=== PATIENT | male | born 1955 | race Caucasian/White ===

== ENCOUNTER 2017-01-15 15:49 | Inpatient (IN) | payer MEDICAID, OTHER ==
[2017-01-15 16:34] LABS: ABG ALLEN TEST YES; ARTERIAL BLOOD GAS HCO3 9.3 mmol/L (21-28); ARTERIAL BLOOD GAS O2 SAT 100.5 % (95-98); ARTERIAL BLOOD GAS PCO2 73 mm/Hg (35-45); ARTERIAL BLOOD GAS PH 6.89 (7.35-7.45); ARTERIAL BLOOD GAS PO2 134 mm/Hg (80-100); ARTERIAL BLOOD GAS TCO2 16.2 mmol/L (22-28)
[2017-01-15 16:43] LABS: BASO # 0.1 K/uL (0.0-0.2); BASO % 1.2 % (0.0-2.0); EOS # 0.1 K/uL (0.0-0.7); EOS % 1.5 % (0.0-4.0); LYMPH # 5.9 K/uL (1.0-4.3); LYMPH % 63.2 % (20.0-40.0); MEAN CELL VOLUME 95.9 fl (80.0-94.0); MEAN CORPUSCULAR HEMOGLOBIN 30.5 pg (27.0-31.0); MEAN CORPUSCULAR HGB CONC 31.8 g/dL (33.0-37.0); MEAN PLATELET VOLUME 9.7 fl (7.2-11.7); MONO # 0.3 K/uL (0.0-0.8); MONO % 3.6 % (0.0-10.0); NEUT # 2.9 K/uL (1.8-7.0); NEUT % 30.5 % (50.0-75.0); PLATELET COUNT 185 K/uL (130-400); RBC 4.59 Mil/uL (4.40-5.90); RED CELL DISTRIBUTION WIDTH 13.9 % (11.5-14.5); WHITE BLOOD COUNT 9.4 K/uL (4.8-10.8)
[2017-01-15] MEDS ORDERED: Dextrose 50% SYRINGE Inj (50 ml) IVP ONE (16:54)
[2017-01-15 16:55] LABS: ALB/GLOB RATIO 1.7 (1.0-2.1); ALBUMIN 3.9 g/dL (3.5-5.0); ALT/SGPT 210 U/L (21-72); AST/SGOT 130 U/L (17-59); BLOOD UREA NITROGEN 16 mg/dl (9-20); GFR AFRICAN-AMERICAN 46; GFR NON-AFRICAN AMERICAN 38; MAGNESIUM 2.6 MG/DL (1.6-2.3)
[2017-01-15 17:02] LABS: PARTIAL THROMBOPLASTIN TIME 35.3 Seconds (25.6-37.1); PROTHROMBIN TIME 11.4 Seconds (9.8-13.1)
--- NOTE | 2017-01-15 17:53 | RAD ---
HISTORY: arrest COMPARISON: No prior. FINDINGS: LUNGS: ETT tip lies approximately 2.8 cm above trinity. Central pulmonary vasculature is slightly increased. No acute infiltrates. PLEURA: No significant pleural effusion identified, no pneumothorax apparent. CARDIOVASCULAR: Cardiomegaly. OSSEOUS STRUCTURES: No significant abnormalities. VISUALIZED UPPER ABDOMEN: Normal. OTHER FINDINGS: None. IMPRESSION: In situ ETT as above. No acute infiltrates seen. Central pulmonary vasculature is slightly increased Cardiomegaly.
--- NOTE | 2017-01-15 18:00 | CT ---
PROCEDURE: CT HEAD WITHOUT CONTRAST. HISTORY: cardiac arrest COMPARISON: None available. TECHNIQUE: Axial computed tomography images were obtained through the head/brain without intravenous contrast. Radiation dose: Total exam DLP = 2566.01 mGy-cm. This CT exam was performed using one or more of the following dose reduction techniques: Automated exposure control, adjustment of the mA and/or kV according to patient size, and/or use of iterative reconstruction technique. FINDINGS: HEMORRHAGE: No acute intracranial hemorrhage. . BRAIN: There is diffuse somewhat low-attenuation homogeneous appearance of the brain parenchyma with loss of corticomedullary distinction. Findings are consistent with diffuse cerebral edema likely related to hypoxic event. Clinical correlation recommended. In addition, there are mild chronic periventricular white matter ischemic changes extending peripherally into the deep white matter both cerebral hemispheres. The sulci are also compressed due to the aforementioned cerebral edema. VENTRICLES: No evidence of obstructive hydrocephalus CALVARIUM: No acute calvarial fractures. 14.8 x 13.4 mm soft tissue mass density within the left superior frontal scalp associate with a few calcifications. This could represent a inspissated sebaceous cyst with dystrophic type calcifications or possibly benign mesenchymal tumor. . There is a 2nd right superior frontal scalp mass measuring 16.5 x 13.0 mm with similar differential diagnosis. PARANASAL SINUSES: Unremarkable as visualized. No significant inflammatory changes. MASTOID AIR CELLS: Unremarkable as visualized. No inflammatory changes. OTHER FINDINGS: None. IMPRESSION: Findings are consistent with diffuse cerebral edema likely due to significant hypoxic event. Mild mild chronic periventricular white matter ischemic changes. No evidence of acute intracranial hemorrhage. Findings discussed with Dr. Gupta at approximately 5:55 p.m. with written down and read back verification.
[2017-01-15 18:05] LABS: BANDS 3 % (0-2); NEUTROPHIL 19 % (42-75); TOTAL CELLS COUNTED 100
[2017-01-15 18:06] LABS: EOSINOPHIL 1 % (0-7); LYMPHOCYTE 67 % (20-50); MONOCYTE 4 % (0-10); REACTIVE LYMPHOCYTES 6 % (0-0)
[2017-01-15 18:07] LABS: PLATELET ESTIMATE NORMAL (NORMAL)
--- NOTE | 2017-01-15 18:16 | CP.PCM.CON ---
History of Present Illness - History of Present Illness History of Present Illness: 61 y/o H male a smoker h/o HTN presented with Cardiac arrest AED was applied and the patient was defibrillated twice, multiple further defibrillation awad performed by EMD and ER team. The patient received IV Amio bolus in the filed EKG in ER revealed mononorphic VT followed by A Fib with lateral ischemia. I discussed he case with Dr. Carmona the Code heart paper conservatorroute salesperson , however , he did not consider the case as code heart candidate for [facility] because of lack of ST elevation Head CT scan in ER revealed cerebral edema, The patient is unresponsive on Vent with rhythm alternating between sinus and A Fib Patient is on Dopamine at 20 ug /min The case was discussed at length with ER doctor and intensivit as well as patient's Past Patient History - Past Social History Smoking Status: Never Smoked - PSYCHIATRIC Hx Substance Use: No Meds Allergies/Adverse Reactions: Allergies Allergy/AdvReac Type Severity Reaction Status Date / Time No Known Allergies Allergy Verified 04/28/14 10:46 Physical Exam - Constitutional Additional comments: unresponsive - Eye Exam Eye Exam: Normal appearance - Neck Exam Neck exam: Positive for: Normal Inspection - Respiratory Exam Respiratory Exam: Rhonchi, Wheezes - Cardiovascular Exam Cardiovascular Exam: Irregular Rhythm - GI/Abdominal Exam GI & Abdominal Exam: Hypoactive Bowel Sounds - Extremities Exam Extremities exam: Positive for: normal inspection Results - Vital Signs Recent Vital Signs: Last Vital Signs Temp 98.5 F 01/15/17 16:59 Pulse 80 01/15/17 16:59 Resp 16 01/15/17 16:59 BP 115/80 01/15/17 16:59 Pulse Ox 96 01/15/17 16:59 - Labs Result Diagrams: 01/15/17 16:35 01/15/17 16:35 Assessment & Plan - Assessment and Plan (Free Text) Assessment: s/p Cardiac arrest, Monomorphic VT Paroxysmal A Fib Cerebral Edema Hypotension Plan: Discussed with power wood sawyer Cont. Dopamin infusion strat IV Amio. Hypothermia Neuro consult EP consult Cath once neuro and hemodynamic improvement that allow for transfer
--- NOTE | 2017-01-15 18:29 | ED PDOC ---
HPI: Cardiac Arrest Time Seen by Provider: 01/15/17 16:41 Chief Complaint (Nursing): Cardiac Arrest Chief Complaint (Provider): Cardiac Arrest History Per: EMS Additional Complaint(s): 61 y/o male presents to the emergency department via EMS after found collapsed on the street unresponsive about 20 minutes prior to arrival. As per history from EMT, patient showed to be A-fib by AED and had 3 shocks preformed on him before paramedics arrived. Medicated with 50 mEQ sodium bicarb, 1gm calcium gluconate, 4 doses of epi, 300mg amiodarone. Patient was also intubated with CPR compressions with an intraosseous on the left lower extremity but still had a pulseless rhythm when brought to the emergency department after given all medications mentioned above. --Spoke to who states patient takes Aspirin and Losartan for hypertension. Patient told he was going to meet someone and left which is all she is aware of. Past Medical History Reviewed: Historical Data, Nursing Documentation, Vital Signs Vital Signs: Last Vital Signs Temp 98.5 F 01/15/17 16:59 Pulse 80 01/15/17 16:59 Resp 16 01/15/17 16:59 BP 115/80 01/15/17 16:59 Pulse Ox 96 01/15/17 18:46 - Medical History PMH: HTN - Surgical History Surgical History: No Surg Hx - Family History Family History: States: Unknown Family Hx - Immunization History Hx Tetanus Toxoid Vaccination: No Hx Influenza Vaccination: No Hx Pneumococcal Vaccination: No - Home Medications Home Medications: Ambulatory Orders Medication Instructions Recorded No Known Home Med [No Known Home 04/28/14 Med] - Allergies Allergies/Adverse Reactions: Allergies Allergy/AdvReac Type Severity Reaction Status Date / Time No Known Allergies Allergy Verified 04/28/14 10:46 Review of Systems Review Of Systems: ROS cannot be obtained secondary to pt's inabilty to answer questions. Physical Exam - Reviewed Nursing Documentation Reviewed: Yes Vital Signs Reviewed: Yes - Physical Exam Head Exam: Positive for: ATRAUMATIC, NORMAL INSPECTION, NORMOCEPHALIC - Laboratory Results Result Diagrams: 01/15/17 16:35 01/15/17 16:35 - ECG O2 Sat by Pulse Oximetry: 96 (RA) Pulse Ox Interpretation: Normal Medical Decision Making Medical Decision Making: Time: 15:47 Initial impression: Cardiac Arrest Initial plan: --Patient arrived after 20 minutes down time when found on the floor. --1st EPI given and CPR in process with Bag via ET Tube. Time: 15:50 --Pulse Check: Faint rhythm with Bag via ET Tube still in place. --Central Line completed. Time: 15:52 --2nd EPI given and CPR still in process. Time: 15:55 --3rd EPI given and CPR still in process. Time: 15:56 --Patient shown to be in A-fib, stand clear, and 1st SHOCK given. --CPR continued. Time: 15:57 --Pulse check: Yes --AccuCheck: 53 --Continued compressions and CPR. Time: 15:58 --Pulse Check: None --Stand Clear. 2nd SHOCK. --Continued CPR. Time: 16:02 --Pupils dilated bilaterally. --Pulse Check: Yes --Blood Pressure: 129/72 Time: 16:05 --Pulse Check: yes --EKG preformed which showed A-fib. Time: 16:07 --Pulse Check: None --4th EPI given with CPR in process. Time: 16:09 --Pulse Check: Yes (very faint, 1 beat at a time) Time: 16:11 --Stand Clear. 3rd SHOCK. --Continued CPR. Time: 16:12 --Dopamine HCL prepared and ready for distribution once heart beat is steady. Time: 16:13 --Pulse Check: Yes Time: 16:14 --Pulse Check: None Time: 16:16 --5th EPI given. --Continued CPR process. Time: 16:17 --Stand Clear. 4th SHOCK given. --Continued CPR. Time: 16:19 --Pulse Check: None Time: 16:20 --Stand Clear. 5th SHOCK given. Time: 16:22 --Pulse Check: yes but irregular. --Dopamine Drip started. Time: 16:26 --PAEsha sarmad blood from patient. --Bedside US completed that showed spontaneous activity. Time: 16:28 --EKG showed a heart rate of 14 bpm. --Tidal Volume of 550. --Oxygen of 100% Time: 16:30 --X-ray completed which showed cardiomegaly. Time: 16:33 --pH was a 6.89. Time: 16:34 --Pulse Check: Yes. Time: 16:36 --Page Cather completed. --1 hour critical care. --Type and Screen STAT --Head w/o contrast CT --Electrocardiogram STAT --Alcohol Serum --COMP metabolic panel --Drug Screen, Urine --Lact Acid, plasma --Magnesium --Phosphorous --Troponin I STAT --ED Urine Dipstick (POC) --EKG-ED (EDNURTX) --Partial Thromboplastin Time (COAG) --Prothrombin Time (COAG) --Chest Portable (RAD) --Spindle Maker CONT --IV Insertion --Pain Assess/Re-Assess --Active patient cooling --Implement rewarming measures --Initiate per institute policy --Maintain MAP Range 80-100 --Monitor for Seizure & Shiverin --Nasogastric Tube Insertion --Neuromuscular Blockade Monitor --Seizure Precautions --Page (Urinary Catheter Insertion) --Ventilator Settings (RT) --Dextrose 50% 50 ml IVP Time: 17:52 --Chest X-ray FINDINGS: LUNGS: ETT tip lies approximately 2.8 cm above trinity. Central pulmonary vasculature is slightly increased. No acute infiltrates. PLEURA: No significant pleural effusion identified, no pneumothorax apparent. CARDIOVASCULAR: Cardiomegaly. OSSEOUS STRUCTURES: No significant abnormalities. VISUALIZED UPPER ABDOMEN: Normal. OTHER FINDINGS: None. IMPRESSION: In situ ETT as above. No acute infiltrates seen. Central pulmonary vasculature is slightly increased Cardiomegaly. Time: 17:58 --Head CT FINDINGS: HEMORRHAGE: No acute intracranial hemorrhage. . BRAIN: There is diffuse somewhat low-attenuation homogeneous appearance of the brain parenchyma with loss of corticomedullary distinction. Findings are consistent with diffuse cerebral edema likely related to hypoxic event. Clinical correlation recommended. In addition, there are mild chronic periventricular white matter ischemic changes extending peripherally into the deep white matter both cerebral hemispheres. The sulci are also compressed due to the aforementioned cerebral edema. VENTRICLES: No evidence of obstructive hydrocephalus CALVARIUM: No acute calvarial fractures. 14.8 x 13.4 mm soft tissue mass density within the left superior frontal scalp associate with a few calcifications. This could represent a inspissated sebaceous cyst with dystrophic type calcifications or possibly benign mesenchymal tumor. . There is a 2nd right superior frontal scalp mass measuring 16.5 x 13.0 mm with similar differential diagnosis. PARANASAL SINUSES: Unremarkable as visualized. No significant inflammatory changes. MASTOID AIR CELLS: Unremarkable as visualized. No inflammatory changes. OTHER FINDINGS: None. IMPRESSION: Findings are consistent with diffuse cerebral edema likely due to significant hypoxic event. Mild mild chronic periventricular white matter ischemic changes. No evidence of acute intracranial hemorrhage. Findings discussed with Dr. Gupta at approximately 5:55 p.m. with written down and read back verification. --Patient is now intubated and unresponsive. --Perfusable heart rate supported by medications. --Pupils dilated and being admitted to ICU. Time: 17:50 --Physician Consult: for post cardiac arrest and spoke to Dr. Nestor Carrillo MD. --Admit to hospital routine as inpatient at intensive care unit for post cardiac arrest under the care of Dr. Dahiana Jeffers MD. Time: 17:54 --Critical Care consult: for cardiac arrest and spoke to Dr. Jim Evans MD Scribe Attestation: Documented by Courtney Chirinos, acting as a scribe for Rubia Gupta MD. Provider Scribe Attestation: All medical record entries made by the Scribe were at my direction and personally dictated by me. I have reviewed the chart and agree that the record accurately reflects my personal performance of the history, physical exam, medical decision making, and the department course for this patient. I have also personally directed, reviewed, and agree with the discharge instructions and disposition. around 5:10pm - case d/w with Dr. Jacobs regarding patient s/p cardiac arrest with ROSC and potential for code heart protocol activation. EKGs with significant abnormalities and one after ROSC sent via SMS. Per Dr. Jacobs, patient not candidate for code heart. Case d/w Dr. Evans for ICU admission and Dr. Rutledge for cardiology. Both examined patient and reviewed available data. Patient admitted to the ICU under hospitalist service. Procedures - Central Line Central Line Lumen: triple Central Line Procedure: betadine prep, sterile drapes applied, sterile dressing applied Central Line Postion: femoral (R) Complications: none Central Line Post Position: good blood return Disposition - Clinical Impression Clinical Impression: Cardiac arrest, Signs of return of spontaneous circulation - Patient ED Disposition Is Patient to be Admitted: Yes - Disposition Disposition: Routine/Home Disposition Time: 19:02 Condition: CRITICAL - Pt Status Changed To: Hospital Disposition Of: Inpatient - Admit Certification Admit to Inpatient:: After my assessment, the patient will require hospitalization for at least two midnights. This is because of the severity of symptoms shown, intensity of services needed, and/or the medical risk in this patient being treated as an outpatient. Critical Care Time - Critical Care Note Total Time (in mins): 60 Documented critical care: time excludes all time spent performing seperately billable procedures.
[2017-01-15] MEDS ORDERED: Amiodarone 900 MG in Dextrose 5% In Water 500 ML IVPB SCH (18:30)
--- NOTE | 2017-01-15 18:36 | CP.PCM.CON ---
History of Present Illness - History of Present Illness History of Present Illness: 61 male with history of HTN presented to ER after cardiac arrest, patient was defibrillated in the field twice and multiple times in ER code heart was called by ER but patient is not candidate for cath now as per code heart measurement advisor, patient intubated, no response to verbal stimuli, patient was seen by cardiology consult in ER, events reviewed Review of Systems - Review of Systems Systems not reviewed;Unavailable: Intubated Past Patient History - Past Social History Smoking Status: Former Smoker - CARDIAC Hx Hypertension: Yes - PSYCHIATRIC Hx Substance Use: No Meds Allergies/Adverse Reactions: Allergies Allergy/AdvReac Type Severity Reaction Status Date / Time No Known Allergies Allergy Verified 04/28/14 10:46 - Medications Medications: Current Medications Aspirin (Aspirin Chewable) 81 mg PO DAILY VIKY Atorvastatin Calcium (Lipitor) 40 mg PO DAILY VIKY Metoprolol Tartrate (Lopressor) 6.25 mg PO Q12 VIKY Physical Exam - Head Exam Head Exam: ATRAUMATIC, NORMAL INSPECTION - Eye Exam Eye Exam: Normal appearance - ENT Exam ENT Exam: Mucous Membranes Moist - Neck Exam Neck exam: Positive for: Normal Inspection - Respiratory Exam Respiratory Exam: Clear to Auscultation Bilateral - Cardiovascular Exam Cardiovascular Exam: Irregular Rhythm - GI/Abdominal Exam GI & Abdominal Exam: Normal Bowel Sounds - Extremities Exam Extremities exam: Positive for: normal inspection - Back Exam Back exam: NORMAL INSPECTION - Neurological Exam Additional comments: on ventilator, no response to verbal stimuli - Skin Skin Exam: Warm Results - Vital Signs Recent Vital Signs: Last Vital Signs Temp 98.5 F 01/15/17 16:59 Pulse 80 01/15/17 16:59 Resp 16 01/15/17 16:59 BP 115/80 01/15/17 16:59 Pulse Ox 96 01/15/17 18:31 - Labs Result Diagrams: 01/15/17 16:35 01/15/17 16:35 Assessment & Plan - Assessment and Plan (Free Text) Assessment: A/P Cardiac arrest, v. tach, paroxysmal A Fib, ?acute CA, respiratory failure, h/o HTN, ?anoxic encephalopathy - Ventilatory support - Cardiology consult - Aspirin B-Aubrey, heparin, amioderone - Hypothermia protocol - Follow up labs - Pressors as needed - EP consult - Neurology consult Critical care 40 min
[2017-01-15 18:37] LABS: BARBITURATES, UR NEGATIVE (NEGATIVE); BENZODIAZEPINES, UR NEGATIVE (NEGATIVE); PHENCYCLIDINE, UR NEGATIVE (NEGATIVE)
[2017-01-15] MEDS ORDERED: Heparin25000 units/250ml 1/2NS 25,000 UNITS/250 ML BAG IV ONE (18:43)
[2017-01-15] MEDS ORDERED: Heparin 25,000units in D5W 25,000 UNITS/250 ML BAG IV SCH (18:45)
[2017-01-15 18:48] LABS: OPIATES, UR NEGATIVE (NEGATIVE)
--- NOTE | 2017-01-15 18:56 | CP.PCM.HP ---
History of Present Illness - History of Present Illness History of Present Illness: CC: CARDIAC ARREST HPI: 61 year old male with no known past medical history was brought in by EMS after being found collapsed on sidewalk. Patient was unresponsive for approximately 20 minutes, was found to be in AFIB and was shocked 4 times. He was also given 4 Epi, 1 sodium bicarb, 1 ca gluconate, and Amiodarone bolus 300 mg. He was intubated in the field, and had IO placed for access. In the ER pt was found to be PEA, and alternated between PEA and VFIB while ACLS protocol was followed. Central line placed, code heart contacted, no activation. CT head edema consistent wtih hypoxia. Dopamine drip started and then discontinued prior to transfer to ICU. [employer] Handler and Cardiology consulted and saw patient in ER. Will start amiodarone drip, heparin drip, lopressor, statin, asa, plavix started. OGT and Page inserted. Patient is still unresponsive and does not require sedation for intubation. Afebrile, hypertensive, tachycardic. Respiratory Acidosis, lactate 10.6, elevated Cr 1.8 BUN 16 GFR 46, elevated transaminases 2/2 shock liver. troponin negative 0.07. UDS and ETOH levels negative. ROS: unable to obtain 2/2 unresponsive PMH: unable to obtain 2/2 unresponsive PSH: unable to obtain 2/2 unresponsive FH: unable to obtain 2/2 unresponsive SH: unable to obtain 2/2 unresponsive Meds: unable to obtain 2/2 unresponsive Allergies: NKDA Vitals: reviewed and currently stable Temp Pulse Resp BP Pulse Ox 98.5 F 104 H 14 180/90 H 97 01/15/17 16:59 01/15/17 19:04 01/15/17 19:04 01/15/17 19:04 01/15/17 19:04 Exam: GEN: unresponsive intubated HEENT: NCAT, dilated pupils NECK: supple, no JVD, no lymphadenopathy CARDIAC: +[id number] IRREG rhythm LUNG: CTAB No WRR ABD: SOFT ND BSX4 NO MASSES NO HSM EXT: +pedal pulses, warm NEURO: unresponsive, DTRs SKIN warm, dry PSYCH unable to evaluate Labs: 01/15/17 01/15/17 01/15/17 18:04 17:06 16:56 WBC RBC Hgb Hct MCV MCH MCHC RDW Plt Count MPV Neut % (Auto) Lymph % (Auto) [place] % (Auto) Eos % (Auto) Baso % (Auto) Neut # Lymph # [place] # Eos # Baso # Neutrophils % (Manual) Band Neutrophils % Lymphocytes % (Manual) Reactive Lymphs % Monocytes % (Manual) Eosinophils % (Manual) Platelet Estimate RBC Morphology PT INR APTT pCO2 pO2 HCO3 ABG pH ABG Total CO2 ABG O2 Saturation ABG Base Excess Ru Test ABG Potassium A-a O2 Difference Sodium Chloride Glucose Lactate Vent Mode Mechanical Rate FiO2 Tidal Volume Crit Value Called To Crit Value Called By Crit Value Read Back Blood Gas Notified Time Potassium Carbon Dioxide Anion Gap BUN Creatinine Est GFR ( Amer) Est GFR (Non-Af Amer) Random Glucose Lactic Acid Calcium Phosphorus Magnesium Total Bilirubin AST ALT Alkaline Phosphatase Troponin I Total Protein Albumin Globulin Albumin/Globulin Ratio Arterial Blood Potassium Urine Opiates Screen Negative Urine Methadone Screen Negative Ur Barbiturates Screen Negative Ur Phencyclidine Scrn Negative Ur Amphetamines Screen Negative U Benzodiazepines Scrn Negative U Oth Cocaine Metabols Negative U Cannabinoids Screen Negative Alcohol, Quantitative Blood Type AB POSITIVE Blood Type Confirm AB POSITIVE Antibody Screen Negative BBK History Checked No verified bt 01/15/17 01/15/17 01/15/17 16:35 16:35 16:35 WBC 9.4 RBC 4.59 Hgb 14.0 Hct 44.0 MCV 95.9 H MCH 30.5 MCHC 31.8 L RDW 13.9 Plt Count 185 MPV 9.7 Neut % (Auto) 30.5 L Lymph % (Auto) 63.2 H [place] % (Auto) 3.6 Eos % (Auto) 1.5 Baso % (Auto) 1.2 Neut # 2.9 Lymph # 5.9 H [place] # 0.3 Eos # 0.1 Baso # 0.1 Neutrophils % (Manual) 19 L Band Neutrophils % 3 H Lymphocytes % (Manual) 67 H Reactive Lymphs % 6 H Monocytes % (Manual) 4 Eosinophils % (Manual) 1 Platelet Estimate Normal RBC Morphology Normal PT 11.4 INR 1.0 APTT 35.3 pCO2 pO2 HCO3 ABG pH ABG Total CO2 ABG O2 Saturation ABG Base Excess Ru Test ABG Potassium A-a O2 Difference Sodium Chloride Glucose Lactate Vent Mode Mechanical Rate FiO2 Tidal Volume Crit Value Called To Crit Value Called By Crit Value Read Back Blood Gas Notified Time Potassium Carbon Dioxide Anion Gap BUN Creatinine Est GFR ( Amer) Est GFR (Non-Af Amer) Random Glucose Lactic Acid 11.8 H* Calcium Phosphorus Magnesium Total Bilirubin AST ALT Alkaline Phosphatase Troponin I Total Protein Albumin Globulin Albumin/Globulin Ratio Arterial Blood Potassium Urine Opiates Screen Urine Methadone Screen Ur Barbiturates Screen Ur Phencyclidine Scrn Ur Amphetamines Screen U Benzodiazepines Scrn U Oth Cocaine Metabols U Cannabinoids Screen Alcohol, Quantitative Blood Type Blood Type Confirm Antibody Screen BBK History Checked 01/15/17 01/15/17 16:35 16:29 WBC RBC Hgb Hct MCV MCH MCHC RDW Plt Count MPV Neut % (Auto) Lymph % (Auto) [place] % (Auto) Eos % (Auto) Baso % (Auto) Neut # Lymph # [place] # Eos # Baso # Neutrophils % (Manual) Band Neutrophils % Lymphocytes % (Manual) Reactive Lymphs % Monocytes % (Manual) Eosinophils % (Manual) Platelet Estimate RBC Morphology PT INR APTT pCO2 73 H* pO2 134 H HCO3 9.3 L* ABG pH 6.89 L* ABG Total CO2 16.2 L ABG O2 Saturation 100.5 H ABG Base Excess -20.0 L Ru Test Yes ABG Potassium 3.8 A-a O2 Difference 488.0 Sodium 143 139.0 Chloride 106 106.0 Glucose 391 H Lactate 10.6 H* Vent Mode Prvc ac Mechanical Rate 14 FiO2 100.0 Tidal Volume 550 Crit Value Called To Dr renetta de souza Crit Value Called By 292 Crit Value Read Back Y Blood Gas Notified Time 1634 Potassium 4.0 Carbon Dioxide 15 L Anion Gap 26 H BUN 16 Creatinine 1.8 H Est GFR ( Amer) 46 Est GFR (Non-Af Amer) 38 Random Glucose 312 H Lactic Acid Calcium 9.0 Phosphorus 11.4 H Magnesium 2.6 H Total Bilirubin 0.3 AST 130 H ALT 210 H Alkaline Phosphatase 77 Troponin I 0.0700 Total Protein 6.3 Albumin 3.9 Globulin 2.3 Albumin/Globulin Ratio 1.7 Arterial Blood Potassium 3.8 Urine Opiates Screen Urine Methadone Screen Ur Barbiturates Screen Ur Phencyclidine Scrn Ur Amphetamines Screen U Benzodiazepines Scrn U Oth Cocaine Metabols U Cannabinoids Screen Alcohol, Quantitative < 10 Blood Type Blood Type Confirm Antibody Screen BBK History Checked Rads: ct head consistent with edema 2/2 hypoxia Active Medications: Allergies No Known Allergies Allergy (Verified 04/28/14 10:46) Height & Weight Height 5 ft 7 in Weight 200 lb Start Date/Time Active Medications 01/15/17 18:30 Dextrose 5% In Water 500 ml Amiodarone [Amiodarone 150mg/3 ml vial] 900 mg IVPB 1 mg/min 01/15/17 18:34 Acetaminophen [Tylenol 325mg tab] 650 mg PO Q6H PRN Docusate [Colace] 100 mg PO BID PRN 01/15/17 18:45 Heparin 25,000units in D5W [Heparin 25,000 units/250ml in D5W] 25,000 units in 250 ml IV Per Protocol Anticoagulation Clinical Indication: ACS (STEMI, NSTEMI, UA) Continuation from home meds: No 01/15/17 21:00 Metoprolol Tartrate [Lopressor] 6.25 mg PO Q12 01/16/17 09:00 Aspirin [Aspirin Chewable] 81 mg PO DAILY Atorvastatin [Lipitor] 40 mg PO DAILY Clopidogrel [Plavix] 75 mg PO DAILY Pantoprazole [Protonix Inj] 40 mg IVP DAILY Assessment and Plan: 61 year old male with no known past medical history was brought in by EMS after being found collapsed on sidewalk. Patient was unresponsive for approximately 20 minutes, was found to be in AFIB and was shocked 4 times. He was also given 4 Epi, 1 sodium bicarb, 1 ca gluconate, and Amiodarone bolus 300 mg. He was intubated in the field, and had IO placed for access. In the ER pt was found to be PEA, and alternated between PEA and VFIB while ACLS protocol was followed. Central line placed, code heart contacted, no activation. CT head edema consistent wtih hypoxia. Dopamine drip started and then discontinued prior to transfer to ICU. As[employer] Handler and Cardiology consulted and saw patient in ER. Will start amiodarone drip, heparin drip, lopressor, statin, asa, plavix started. OGT and Page inserted. HYPOXIC HYPERCARBIC RESPIRATORY FAILURE SECONDARY TO CARDIAC ARREST RESPIRATORY ACIDOSIS admit to ICU Patient is still unresponsive and does not require sedation for intubation. Afebrile, hypertensive, tachycardic. Vented AC 550/14/PEEP 5 /100% repeat ABG shock for repeat lactate as well, 11.8 EKG AFIB, evidence of ischemia, troponin 0.07 Patient between AFib and sinus tach Amiodarone Drip Heparin drip, ASA, Plavix, Lopressor ECHO ordered UDS and ETOH levels negative. Cardiology consult Dr. Carrillo Repeat ABG CXR in AM Repeat Chem, Mg Phos Lipid panel TSH and trend cardiac enzymes Repeat EKG in AM ACUTE ON CHRONIC RENAL INSUFFICIENCY? elevated Cr 1.8 BUN 16 GFR 46 monitor repeat BMP ELEVATED TRANSAMINASES elevated transaminases 2/2 shock liver monitor hepatic function Present on Admission - Present on Admission Any Indicators Present on Admission: No Past Patient History - Past Social History Smoking Status: Former Smoker - CARDIAC Hx Hypertension: Yes - PSYCHIATRIC Hx Substance Use: No Meds Allergies/Adverse Reactions: Allergies Allergy/AdvReac Type Severity Reaction Status Date / Time No Known Allergies Allergy Verified 04/28/14 10:46 Results - Vital Signs Recent Vital Signs: Last Vital Signs Temp 98.5 F 01/15/17 16:59 Pulse 80 01/15/17 16:59 Resp 16 01/15/17 16:59 BP 115/80 01/15/17 16:59 Pulse Ox 96 01/15/17 18:55 - Labs Result Diagrams: 01/15/17 16:35 01/15/17 16:35 Labs: Laboratory Results - last 24 hr 01/15/17 18:04 Urine Opiates Screen Negative Urine Methadone Screen Negative Ur Barbiturates Screen Negative Ur Phencyclidine Scrn Negative Ur Amphetamines Screen Negative U Benzodiazepines Scrn Negative U Oth Cocaine Metabols Negative U Cannabinoids Screen Negative
[2017-01-15] MEDS: Sodium Chloride 0.9% 1,000 ML IV SCH ×2 (20:00→21:00)
[2017-01-15 21:06] LABS: ALB/GLOB RATIO 1.5 (1.0-2.1); ALBUMIN 4.3 g/dL (3.5-5.0); CALCIUM 8.1 mg/dL (8.4-10.2); MAGNESIUM 2.4 MG/DL (1.6-2.3)
[2017-01-15 21:19] VITALS: BMI 30.7
[2017-01-15] MEDS: Pantoprazole 40 MG in Sodium Chloride 0.9% 100 ML IVPB SCH (22:00)
[2017-01-15] MEDS ORDERED: Sodium Bicarbonate 8.4% 150 MEQ in Dextrose 5% In Water 1,000 ML IV SCH (23:04)
[2017-01-15 23:10] LABS: HEMOGLOBIN 14.4 g/dL (12.0-18.0); MEAN CORPUSCULAR HEMOGLOBIN 30.6 pg (27.0-31.0); RBC 4.72 Mil/uL (4.40-5.90); RED CELL DISTRIBUTION WIDTH 13.7 % (11.5-14.5); WHITE BLOOD COUNT 13.1 K/uL (4.8-10.8)
[2017-01-15 23:23] LABS: MEAN CELL VOLUME 92.7 fl (80.0-94.0)
[2017-01-15 23:43] LABS: ABG ALLEN TEST YES; ARTERIAL BLOOD GAS HCO3 12.9 mmol/L (21-28); ARTERIAL BLOOD GAS O2 SAT 98.3 % (95-98); ARTERIAL BLOOD GAS PCO2 45 mm/Hg (35-45); ARTERIAL BLOOD GAS PO2 92 mm/Hg (80-100); ARTERIAL BLOOD GAS TCO2 15.4 mmol/L (22-28)
[2017-01-15] MEDS ORDERED: Sodium Bicarbonate 7.5% (0.9 MEQ/ML) 50ML INJ IV ONE (23:50)
[2017-01-16 01:45] LABS: MEAN CELL VOLUME 92.8 fl (80.0-94.0); MEAN CORPUSCULAR HEMOGLOBIN 29.8 pg (27.0-31.0); MEAN CORPUSCULAR HGB CONC 32.2 g/dL (33.0-37.0); RBC 5.03 Mil/uL (4.40-5.90); RED CELL DISTRIBUTION WIDTH 13.8 % (11.5-14.5); WHITE BLOOD COUNT 20.8 K/uL (4.8-10.8)
[2017-01-16 01:56] LABS: ALB/GLOB RATIO 1.4 (1.0-2.1); ALBUMIN 3.8 g/dL (3.5-5.0); CALCIUM 7.9 mg/dL (8.4-10.2); MAGNESIUM 2.4 MG/DL (1.6-2.3)
[2017-01-16 02:12] LABS: INR 1.1 (0.9-1.2); PROTHROMBIN TIME 12.3 Seconds (9.8-13.1)
[2017-01-16 02:15] LABS: PARTIAL THROMBOPLASTIN TIME 107.6 Seconds (25.6-37.1)
[2017-01-16] MEDS: Pantoprazole 40 MG in Sodium Chloride 0.9% 100 ML IVPB SCH ×3 (03:30→18:42)
[2017-01-16 05:08] LABS: ABG ALLEN TEST YES; ARTERIAL BLOOD GAS HCO3 15.2 mmol/L (21-28); ARTERIAL BLOOD GAS HEMOGLOBIN 15.9 g/dL (11.7-17.4); ARTERIAL BLOOD GAS O2 CAPACITY 21.7 mL/dL (16-24); ARTERIAL BLOOD GAS O2 CONTENT 21.4 ML/dL (15-23); ARTERIAL BLOOD GAS O2 SAT 98.4 % (95-98); ARTERIAL BLOOD GAS PCO2 76 mm/Hg (35-45); ARTERIAL BLOOD GAS PH 7.03 (7.35-7.45); ARTERIAL BLOOD GAS PO2 103 mm/Hg (80-100); ARTERIAL BLOOD GAS TCO2 22.4 mmol/L (22-28)
[2017-01-16 05:20] LABS: BASO % 0.1 % (0.0-2.0); EOS % 0.1 % (0.0-4.0); HEMOGLOBIN 14.9 g/dL (12.0-18.0); LYMPH # 0.6 K/uL (1.0-4.3); LYMPH % 3.1 % (20.0-40.0); MEAN CELL VOLUME 92.6 fl (80.0-94.0); MEAN CORPUSCULAR HEMOGLOBIN 30.2 pg (27.0-31.0); MEAN CORPUSCULAR HGB CONC 32.6 g/dL (33.0-37.0); MONO # 0.4 K/uL (0.0-0.8); MONO % 2.1 % (0.0-10.0); NEUT # 18.2 K/uL (1.8-7.0); NEUT % 94.6 % (50.0-75.0); NRBC % 0.3 % (0.0-0.0); PLATELET COUNT 215 K/uL (130-400); RBC 4.94 Mil/uL (4.40-5.90); RED CELL DISTRIBUTION WIDTH 13.7 % (11.5-14.5); WHITE BLOOD COUNT 19.2 K/uL (4.8-10.8)
[2017-01-16 05:31] LABS: ALBUMIN 3.7 g/dL (3.5-5.0)
[2017-01-16 05:34] LABS: ALB/GLOB RATIO 1.3 (1.0-2.1)
[2017-01-16 05:35] LABS: CALCIUM 7.8 mg/dL (8.4-10.2); MAGNESIUM 2.5 MG/DL (1.6-2.3)
[2017-01-16 07:48] LABS: BANDS 1 % (0-2); LYMPHOCYTE 7 % (20-50); MONOCYTE 6 % (0-10); NEUTROPHIL 86 % (42-75); NUCLEATED RED BLOOD CELL 1 % (0-0); PLATELET ESTIMATE NORMAL (NORMAL); TOTAL CELLS COUNTED 100
[2017-01-16 07:54] LABS: LARGE PLATELETS PRESENT
[2017-01-16] MEDS ORDERED: Pneumococcal 23-Valent Vaccine IM ONE (08:25)
--- NOTE | 2017-01-16 08:25 | CARD ---
APPROVED REPORT EKG Measurement Heart [id number] <Conclusion> Atrial fibrillation with slow ventricular response T wave abnormality, consider lateral ischemia Abnormal ECG
[2017-01-16 09:04] LABS: VENOUS BLOOD GAS BASE EXCESS -9.5 mmol/L (0.0-2.0); VENOUS BLOOD GAS PCO2 97 mmHg (40-60); VENOUS BLOOD GAS PO2 29 mm/Hg (30-55)
[2017-01-16 09:08] LABS: ABG ALLEN TEST YES; ARTERIAL BLOOD GAS HCO3 15.7 mmol/L (21-28); ARTERIAL BLOOD GAS O2 CAPACITY 20.8 mL/dL (16-24); ARTERIAL BLOOD GAS O2 CONTENT 20.6 ML/dL (15-23); ARTERIAL BLOOD GAS O2 SAT 99.2 % (95-98); ARTERIAL BLOOD GAS PCO2 49 mm/Hg (35-45); ARTERIAL BLOOD GAS PH 7.15 (7.35-7.45); ARTERIAL BLOOD GAS PO2 149 mm/Hg (80-100); ARTERIAL BLOOD GAS TCO2 18.6 mmol/L (22-28)
--- NOTE | 2017-01-16 10:17 | RAD ---
PROCEDURE: CHEST RADIOGRAPH, 1 VIEW HISTORY: intubaed COMPARISON: 01/15/2017. FINDINGS: The endotracheal tube terminates 5.3 cm proximal to the trinity. The nasogastric tube terminates in the stomach. LUNGS: The lungs are clear. PLEURA: No pneumothorax or pleural fluid seen. CARDIOVASCULAR: Normal. OSSEOUS STRUCTURES: No significant abnormalities. VISUALIZED UPPER ABDOMEN: Normal. OTHER FINDINGS: None. IMPRESSION: No acute findings.
--- NOTE | 2017-01-16 10:23 | PCM.PROC ---
Procedures Attestation:: I certify that I have explained the specified Operation(s) or Procedure(s), risks, benefits and reasonable alternatives to the Patient and/or other person responsible. The opportunity was given to ask questions and all questions answered - Arterial Line Right Femoral Aseptic technique was employed throughout the procedure: Hand Hygiene done prior to procedure, Full sterile barriers (mask, hair cover, sterile gown, sterile gloves), Chloraprep Antiseptic: 2 minute prep for Femoral Time Out Performed: Yes Pt. placed on Pulse Ox Monitor: Yes Central Line Prep: Chlorhexidine-Alcohol Combination Local Anesthesia Used: Lidocaine 1% Amount of Anesthesia Used (mls): 3 Ultrasound Used for Placement: No Technique Used: Guide Wire Technique Secured by: Suture Post procedure dressing: Clear vapor permeable, Chlorhexidine disc (Biopatch) Patient Tolerated Procedure: well Immediate Complications: none
--- NOTE | 2017-01-16 10:27 | CP.CCUPN ---
CCU Subjective - Physician Review Subjective (Free Text): Interim events reviewed: Remains on Therapeutic Hypothermia, with 24H period to end at 800PM today. Not on any sedation, BP shows MAP 64, not on vasopressors, breathing 16 on AC 14, SPO2 98% on 100% fiO2. Arterial Line just placed and Vasopressors started to maintain MAP 80 or better. Urine output appears poor, on alkalinized fluids at 75 ml/hr. Body temp at 93.9F, no shivering noted. Unequal pupillary changes noted: R now is 2 mm and sluggish to no reactivity, L is 3 mm and reactive. Was on heparin drip , but stopped overnight due to dark red bloody fluid aspirates noted in OGT, now total 1200 ml output. 24H I/O is +1.5 L. ROS: unobtainable , comatose patient PMSFH: all nursing and physician notes reviewed, no other pertinent history relevant to current problems. CCU Objective - Vital Signs / Intake & Output Vital Signs (Last 4 hours): Vital Signs Temp Pulse Resp BP Pulse Ox 01/16/17 07:06 93.9 F L 70 22 84/63 L 97 01/16/17 06:30 92.7 F L 70 22 104/43 L 97 Intake and Output (Last 8hrs): Intake & Output 01/15/17 01/16/17 01/16/17 22:59 06:59 14:59 Intake Total 1010 1881 95 Output Total 420 895 60 Balance 590 986 35 Weight 196 lb Intake: IV 1010 1881 95 Output: Gastric Amount 400 800 50 Stomach 400 800 50 Urine 20 95 10 Urethral (Page) 20 95 10 Other: # Bowel Movements 1 1 - Physical Exam Head: Positive for: Normocephalic Pupils: Positive for: Sluggish, Other (R now is 2 mm and sluggish to no reactivity, L is 3 mm and reactive) Extroacular Muscles: Positive for: Other (unable to assess, but + Dolls eyes) Conjunctiva: Positive for: Normal Mouth: Positive for: Moist Mucous Membranes Pharnyx: Positive for: Other (ETT in place at 23 cm chantel at the lips. ) Neck: Negative for: JVD Respiratory/Chest: Positive for: Decreased Breath Sounds. Negative for: Wheezes , Rales, Rhonchi Cardiovascular: Positive for: Irregular Rhythm, Peripheal Pulses Present. Negative for: Murmurs, Rub Abdomen: Positive for: Other (soft, no massess palpable.). Negative for: Distention, Rebound Lower Extremity: Positive for: Edema, NORMAL PULSES. Negative for: CALF TENDERNESS, Cyanosis Neurological: Positive for: GCS=15, Other (GCS= 3T) Skin: Positive for: Warm. Negative for: Rashes - Medications Active Medications: Active Medications Generic Name Dose Route Start Last Admin Trade Name Freq PRN Reason Stop Dose Admin Acetaminophen 650 mg 01/15/17 18:34 Tylenol 325mg Tab PO Q6H PRN Fever >100.4 F Aspirin 81 mg 01/16/17 09:00 01/15/17 18:47 Aspirin Chewable PO 81 mg DAILY VIKY Administration Atorvastatin Calcium 40 mg 01/16/17 09:00 Lipitor PO DAILY VIKY Clopidogrel Bisulfate 75 mg 01/16/17 09:00 Plavix PO DAILY VIKY Docusate Sodium 100 mg 01/15/17 18:34 Colace PO BID PRN Constipation Amiodarone HCl 900 mg/ 518 mls @ 34.53 mls/hr 01/15/17 18:30 01/15/17 20:50 Dextrose IVPB 34.53 mls/hr .[id number] VIKY Administration Protocol 1 MG/MIN Heparin Sodium/Dextrose 25,000 units in 250 mls @ 10 mls/hr 01/15/17 18:45 18:59 Heparin 25,000 Units/250ml In D5w IV 10 mls/hr .Q24H VIKY Administration Protocol Per Protocol Pantoprazole Sodium 40 mg/ 100 mls @ 20 mls/hr 01/15/17 21:45 01/16/17 03:30 Sodium Chloride IVPB 20 mls/hr Q5H VIKY Administration 8 MG/HR Norepinephrine Bitartrate 4 mg 254 mls @ 9.52 mls/hr 01/15/17 22:30 / Dextrose IV .Q24H VIKY Protocol 2.5 MCG/MIN Sodium Bicarbonate 150 meq/ 1,150 mls @ 75 mls/hr 01/15/17 23:04 01/15/17 23: 52 Dextrose IV 01/16/17 14:23 75 mls/hr .[id number] VIKY Administration Metoprolol Tartrate 6.25 mg 01/15/17 21:00 01/15/17 18:47 Lopressor PO 6.25 mg Q12 VIKY Administration Pantoprazole Sodium 40 mg 01/16/17 09:00 01/16/17 09:09 Protonix Inj IVP 40 mg DAILY VIKY Administration - Patient Studies Lab Studies: Lab Studies 01/16/17 01/16/17 01/16/17 Range/Units 09:02 08:54 05:00 WBC (4.8-10.8) K/uL RBC (4.40-5.90) Mil/uL Hgb (12.0-18.0) g/dL Hct (35.0-51.0) % MCV (80.0-94.0) fl MCH (27.0-31.0) pg MCHC (33.0-37.0) g/dL RDW (11.5-14.5) % Plt Count (130-400) K/uL MPV (7.2-11.7) fl Neut % (Auto) (50.0-75.0) % Lymph % (Auto) (20.0-40.0) % [place] % (Auto) (0.0-10.0) % Eos % (Auto) (0.0-4.0) % Baso % (Auto) (0.0-2.0) % Neut # (1.8-7.0) K/uL Lymph # (1.0-4.3) K/uL [place] # (0.0-0.8) K/uL Eos # (0.0-0.7) K/uL Baso # (0.0-0.2) K/uL Neutrophils % (Manual) (42-75) % Band Neutrophils % (0-2) % Lymphocytes % (Manual) (20-50) % Monocytes % (Manual) (0-10) % Nucleated RBC % (0-0) % Platelet Estimate (NORMAL) Large Platelets RBC Morphology (NORMAL) PT (9.8-13.1) Seconds INR (0.9-1.2) APTT 66.9 H D (25.6-37.1) Seconds pCO2 49 H (35-45) mm/Hg pO2 149 H 29 L (80-100) mm/Hg HCO3 15.7 L (21-28) mmol/L ABG pH 7.15 L* (7.35-7.45) ABG Total CO2 18.6 L (22-28) mmol/L ABG O2 Saturation 99.2 H (95-98) % ABG O2 Content 20.6 (15-23) ML/dL ABG Base Excess -11.8 L (-2.0-3.0) mmol/L ABG Hemoglobin 15.0 (11.7-17.4) g/dL ABG Carboxyhemoglobin 1.1 (0.5-1.5) % POC ABG HHb (Measured) 0.8 (0.0-5.0) % ABG Methemoglobin 1.6 (0.0-3.0) % ABG O2 Capacity 20.8 (16-24) mL/dL Ru Test Yes ABG Potassium (3.6-5.2) mmol/L VBG pH 7.00 L* (7.32-7.43) VBG pCO2 97 H* (40-60) mmHg VBG HCO3 15.6 mmol/L VBG Total CO2 26.9 (22-28) mmol/L VBG O2 Sat (Calc) 53.9 (40-65) % VBG Base Excess -9.5 L (0.0-2.0) mmol/L VBG Potassium 3.5 L (3.6-5.2) mmol/L A-a O2 Difference 503.0 mm/Hg Hgb O2 Saturation 96.5 (95.0-98.0) % Glucose 212 H (75-110) mg/dL Lactate 3.7 H (0.7-2.1) mmol/L Vent Mode A/c Mechanical Rate 14 FiO2 100.0 100.0 % Tidal Volume 500 Crit Value Called To Brendon santos Crit Value Called By 23 Ms Crit Value Read Back Y Y Blood Gas Notified Time 907 903 Sodium 140.0 (132-148) mmol/l Potassium (3.6-5.0) MMOL/L Chloride 109.0 H (98-107) mmol/L Carbon Dioxide (22-30) mmol/L Anion Gap (10-20) BUN (9-20) mg/dl Creatinine (0.8-1.5) mg/dL Est GFR ( Amer) Est GFR (Non-Af Amer) POC Glucose (mg/dL) (65-110) mg/dL Random Glucose (75-110) mg/dL Lactic Acid (0.7-2.1) MMOL/L Calcium (8.4-10.2) mg/dL Phosphorus (2.5-4.5) mg/dl Magnesium (1.6-2.3) MG/DL Total Bilirubin (0.2-1.3) mg/dl AST (17-59) U/L ALT (21-72) U/L Alkaline Phosphatase (38-126) U/L Troponin I (0.00-0.120) ng/mL Total Protein (6.3-8.2) G/DL Albumin (3.5-5.0) g/dL Globulin (2.2-3.9) gm/dL Albumin/Globulin Ratio (1.0-2.1) Triglycerides (0-149) mg/DL Cholesterol (0-199) mg/dL LDL Cholesterol Direct (0-129) mg/dL HDL Cholesterol (30-70) MG/DL TSH 3rd Generation (0.46-4.68) mIU/ML Arterial Blood Potassium (3.6-5.2) mmol/L Venous Blood Potassium 3.5 L (3.6-5.2) mmol/L Urine Opiates Screen (NEGATIVE) Urine Methadone Screen (NEGATIVE) Ur Barbiturates Screen (NEGATIVE) Ur Phencyclidine Scrn (NEGATIVE) Ur Amphetamines Screen (NEGATIVE) U Benzodiazepines Scrn (NEGATIVE) U Oth Cocaine Metabols (NEGATIVE) U Cannabinoids Screen (NEGATIVE) 01/16/17 01/16/17 01/16/17 Range/Units 05:00 04:50 04:35 WBC (4.8-10.8) K/uL RBC (4.40-5.90) Mil/uL Hgb (12.0-18.0) g/dL Hct (35.0-51.0) % MCV (80.0-94.0) fl MCH (27.0-31.0) pg MCHC (33.0-37.0) g/dL RDW (11.5-14.5) % Plt Count (130-400) K/uL MPV (7.2-11.7) fl Neut % (Auto) (50.0-75.0) % Lymph % (Auto) (20.0-40.0) % [place] % (Auto) (0.0-10.0) % Eos % (Auto) (0.0-4.0) % Baso % (Auto) (0.0-2.0) % Neut # (1.8-7.0) K/uL Lymph # (1.0-4.3) K/uL [place] # (0.0-0.8) K/uL Eos # (0.0-0.7) K/uL Baso # (0.0-0.2) K/uL Neutrophils % (Manual) (42-75) % Band Neutrophils % (0-2) % Lymphocytes % (Manual) (20-50) % Monocytes % (Manual) (0-10) % Nucleated RBC % (0-0) % Platelet Estimate (NORMAL) Large Platelets RBC Morphology (NORMAL) PT (9.8-13.1) Seconds INR (0.9-1.2) APTT (25.6-37.1) Seconds pCO2 76 H* (35-45) mm/Hg pO2 103 H (80-100) mm/Hg HCO3 15.2 L (21-28) mmol/L ABG pH 7.03 L* (7.35-7.45) ABG Total CO2 22.4 (22-28) mmol/L ABG O2 Saturation 98.4 H (95-98) % ABG O2 Content 21.4 (15-23) ML/dL ABG Base Excess -12.4 L (-2.0-3.0) mmol/L ABG Hemoglobin 15.9 (11.7-17.4) g/dL ABG Carboxyhemoglobin 1.5 (0.5-1.5) % POC ABG HHb (Measured) 1.6 (0.0-5.0) % ABG Methemoglobin 1.6 (0.0-3.0) % ABG O2 Capacity 21.7 (16-24) mL/dL Ru Test Yes ABG Potassium (3.6-5.2) mmol/L VBG pH (7.32-7.43) VBG pCO2 (40-60) mmHg VBG HCO3 mmol/L VBG Total CO2 (22-28) mmol/L VBG O2 Sat (Calc) (40-65) % VBG Base Excess (0.0-2.0) mmol/L VBG Potassium (3.6-5.2) mmol/L A-a O2 Difference 515.0 mm/Hg Hgb O2 Saturation 95.4 (95.0-98.0) % Glucose (75-110) mg/dL Lactate (0.7-2.1) mmol/L Vent Mode A/c Mechanical Rate 14 FiO2 100.0 % Tidal Volume 500 Crit Value Called To Tien marcus rn Crit Value Called By 6075 Crit Value Read Back Y Blood Gas Notified Time 508 Sodium 147 (132-148) mmol/l Potassium 3.6 (3.6-5.0) MMOL/L Chloride 113 H (98-107) mmol/L Carbon Dioxide 22 (22-30) mmol/L Anion Gap 16 (10-20) BUN 30 H (9-20) mg/dl Creatinine 2.6 H (0.8-1.5) mg/dL Est GFR ( Amer) 30 Est GFR (Non-Af Amer) 25 POC Glucose (mg/dL) 152 H (65-110) mg/dL Random Glucose 165 H (75-110) mg/dL Lactic Acid (0.7-2.1) MMOL/L Calcium 7.8 L (8.4-10.2) mg/dL Phosphorus 5.5 H (2.5-4.5) mg/dl Magnesium 2.5 H (1.6-2.3) MG/DL Total Bilirubin 0.5 (0.2-1.3) mg/dl AST 1108 H (17-59) U/L ALT 580 H (21-72) U/L Alkaline Phosphatase 129 H (38-126) U/L Troponin I 109.0000 H* (0.00-0.120) ng/mL Total Protein 6.6 (6.3-8.2) G/DL Albumin 3.7 (3.5-5.0) g/dL Globulin 2.9 (2.2-3.9) gm/dL Albumin/Globulin Ratio 1.3 (1.0-2.1) Triglycerides 139 (0-149) mg/DL Cholesterol 183 (0-199) mg/dL LDL Cholesterol Direct 124 (0-129) mg/dL HDL Cholesterol 31 (30-70) MG/DL TSH 3rd Generation 3.19 (0.46-4.68) mIU/ML Arterial Blood Potassium (3.6-5.2) mmol/L Venous Blood Potassium (3.6-5.2) mmol/L Urine Opiates Screen (NEGATIVE) Urine Methadone Screen (NEGATIVE) Ur Barbiturates Screen (NEGATIVE) Ur Phencyclidine Scrn (NEGATIVE) Ur Amphetamines Screen (NEGATIVE) U Benzodiazepines Scrn (NEGATIVE) U Oth Cocaine Metabols (NEGATIVE) U Cannabinoids Screen (NEGATIVE) 01/16/17 01/16/17 01/16/17 Range/Units 04:35 01:28 01:18 WBC 19.2 H (4.8-10.8) K/uL RBC 4.94 (4.40-5.90) Mil/uL Hgb 14.9 (12.0-18.0) g/dL Hct 45.8 (35.0-51.0) % MCV 92.6 (80.0-94.0) fl MCH 30.2 (27.0-31.0) pg MCHC 32.6 L (33.0-37.0) g/dL RDW 13.7 (11.5-14.5) % Plt Count 215 (130-400) K/uL MPV 9.0 (7.2-11.7) fl Neut % (Auto) 94.6 H (50.0-75.0) % Lymph % (Auto) 3.1 L (20.0-40.0) % [place] % (Auto) 2.1 (0.0-10.0) % Eos % (Auto) 0.1 (0.0-4.0) % Baso % (Auto) 0.1 (0.0-2.0) % Neut # 18.2 H (1.8-7.0) K/uL Lymph # 0.6 L (1.0-4.3) K/uL [place] # 0.4 (0.0-0.8) K/uL Eos # 0.0 (0.0-0.7) K/uL Baso # 0.0 (0.0-0.2) K/uL Neutrophils % (Manual) 86 H (42-75) % Band Neutrophils % 1 (0-2) % Lymphocytes % (Manual) 7 L (20-50) % Monocytes % (Manual) 6 (0-10) % Nucleated RBC % 1 H (0-0) % Platelet Estimate Normal (NORMAL) Large Platelets Present RBC Morphology Normal (NORMAL) PT (9.8-13.1) Seconds INR (0.9-1.2) APTT (25.6-37.1) Seconds pCO2 (35-45) mm/Hg pO2 (80-100) mm/Hg HCO3 (21-28) mmol/L ABG pH (7.35-7.45) ABG Total CO2 (22-28) mmol/L ABG O2 Saturation (95-98) % ABG O2 Content (15-23) ML/dL ABG Base Excess (-2.0-3.0) mmol/L ABG Hemoglobin (11.7-17.4) g/dL ABG Carboxyhemoglobin (0.5-1.5) % POC ABG HHb (Measured) (0.0-5.0) % ABG Methemoglobin (0.0-3.0) % ABG O2 Capacity (16-24) mL/dL Ru Test ABG Potassium (3.6-5.2) mmol/L VBG pH (7.32-7.43) VBG pCO2 (40-60) mmHg VBG HCO3 mmol/L VBG Total CO2 (22-28) mmol/L VBG O2 Sat (Calc) (40-65) % VBG Base Excess (0.0-2.0) mmol/L VBG Potassium (3.6-5.2) mmol/L A-a O2 Difference mm/Hg Hgb O2 Saturation (95.0-98.0) % Glucose (75-110) mg/dL Lactate (0.7-2.1) mmol/L Vent Mode Mechanical Rate FiO2 % Tidal Volume Crit Value Called To Crit Value Called By Crit Value Read Back Blood Gas Notified Time Sodium 149 H (132-148) mmol/l Potassium 3.1 L (3.6-5.0) MMOL/L Chloride 115 H (98-107) mmol/L Carbon Dioxide 20 L (22-30) mmol/L Anion Gap 17 (10-20) BUN 27 H (9-20) mg/dl Creatinine 2.4 H (0.8-1.5) mg/dL Est GFR ( Amer) 33 Est GFR (Non-Af Amer) 27 POC Glucose (mg/dL) 170 H (65-110) mg/dL Random Glucose 174 H (75-110) mg/dL Lactic Acid (0.7-2.1) MMOL/L Calcium 7.9 L (8.4-10.2) mg/dL Phosphorus 4.6 H (2.5-4.5) mg/dl Magnesium 2.4 H (1.6-2.3) MG/DL Total Bilirubin 0.7 (0.2-1.3) mg/dl AST 1033 H (17-59) U/L ALT 593 H (21-72) U/L Alkaline Phosphatase 124 (38-126) U/L Troponin I (0.00-0.120) ng/mL Total Protein 6.6 (6.3-8.2) G/DL Albumin 3.8 (3.5-5.0) g/dL Globulin 2.7 (2.2-3.9) gm/dL Albumin/Globulin Ratio 1.4 (1.0-2.1) Triglycerides (0-149) mg/DL Cholesterol (0-199) mg/dL LDL Cholesterol Direct (0-129) mg/dL HDL Cholesterol (30-70) MG/DL TSH 3rd Generation (0.46-4.68) mIU/ML Arterial Blood Potassium (3.6-5.2) mmol/L Venous Blood Potassium (3.6-5.2) mmol/L Urine Opiates Screen (NEGATIVE) Urine Methadone Screen (NEGATIVE) Ur Barbiturates Screen (NEGATIVE) Ur Phencyclidine Scrn (NEGATIVE) Ur Amphetamines Screen (NEGATIVE) U Benzodiazepines Scrn (NEGATIVE) U Oth Cocaine Metabols (NEGATIVE) U Cannabinoids Screen (NEGATIVE) 01/16/17 01/16/17 01/15/17 Range/Units 01:18 01:18 23:39 WBC 20.8 H D (4.8-10.8) K/uL RBC 5.03 (4.40-5.90) Mil/uL Hgb 15.0 (12.0-18.0) g/dL Hct 46.7 (35.0-51.0) % MCV 92.8 (80.0-94.0) fl MCH 29.8 (27.0-31.0) pg MCHC 32.2 L (33.0-37.0) g/dL RDW 13.8 (11.5-14.5) % Plt Count 220 (130-400) K/uL MPV (7.2-11.7) fl Neut % (Auto) (50.0-75.0) % Lymph % (Auto) (20.0-40.0) % [place] % (Auto) (0.0-10.0) % Eos % (Auto) (0.0-4.0) % Baso % (Auto) (0.0-2.0) % Neut # (1.8-7.0) K/uL Lymph # (1.0-4.3) K/uL [place] # (0.0-0.8) K/uL Eos # (0.0-0.7) K/uL Baso # (0.0-0.2) K/uL Neutrophils % (Manual) (42-75) % Band Neutrophils % (0-2) % Lymphocytes % (Manual) (20-50) % Monocytes % (Manual) (0-10) % Nucleated RBC % (0-0) % Platelet Estimate (NORMAL) Large Platelets RBC Morphology (NORMAL) PT 12.3 (9.8-13.1) Seconds INR 1.1 (0.9-1.2) APTT 107.6 H* D (25.6-37.1) Seconds pCO2 45 (35-45) mm/Hg pO2 92 (80-100) mm/Hg HCO3 12.9 L (21-28) mmol/L ABG pH 7.10 L* (7.35-7.45) ABG Total CO2 15.4 L (22-28) mmol/L ABG O2 Saturation 98.3 H (95-98) % ABG O2 Content (15-23) ML/dL ABG Base Excess -15.3 L (-2.0-3.0) mmol/L ABG Hemoglobin (11.7-17.4) g/dL ABG Carboxyhemoglobin (0.5-1.5) % POC ABG HHb (Measured) (0.0-5.0) % ABG Methemoglobin (0.0-3.0) % ABG O2 Capacity (16-24) mL/dL Ru Test Yes ABG Potassium 3.5 L (3.6-5.2) mmol/L VBG pH (7.32-7.43) VBG pCO2 (40-60) mmHg VBG HCO3 mmol/L VBG Total CO2 (22-28) mmol/L VBG O2 Sat (Calc) (40-65) % VBG Base Excess (0.0-2.0) mmol/L VBG Potassium (3.6-5.2) mmol/L A-a O2 Difference 565.0 mm/Hg Hgb O2 Saturation (95.0-98.0) % Glucose 149 H (75-110) mg/dL Lactate 3.6 H (0.7-2.1) mmol/L Vent Mode A/c Mechanical Rate 14 FiO2 100.0 % Tidal Volume 500 Crit Value Called To Tien marcus rn Crit Value Called By 6075 Crit Value Read Back Y Blood Gas Notified Time 2343 Sodium 144.0 (132-148) mmol/l Potassium (3.6-5.0) MMOL/L Chloride 118.0 H (98-107) mmol/L Carbon Dioxide (22-30) mmol/L Anion Gap (10-20) BUN (9-20) mg/dl Creatinine (0.8-1.5) mg/dL Est GFR ( Amer) Est GFR (Non-Af Amer) POC Glucose (mg/dL) (65-110) mg/dL Random Glucose (75-110) mg/dL Lactic Acid (0.7-2.1) MMOL/L Calcium (8.4-10.2) mg/dL Phosphorus (2.5-4.5) mg/dl Magnesium (1.6-2.3) MG/DL Total Bilirubin (0.2-1.3) mg/dl AST (17-59) U/L ALT (21-72) U/L Alkaline Phosphatase (38-126) U/L Troponin I (0.00-0.120) ng/mL Total Protein (6.3-8.2) G/DL Albumin (3.5-5.0) g/dL Globulin (2.2-3.9) gm/dL Albumin/Globulin Ratio (1.0-2.1) Triglycerides (0-149) mg/DL Cholesterol (0-199) mg/dL LDL Cholesterol Direct (0-129) mg/dL HDL Cholesterol (30-70) MG/DL TSH 3rd Generation (0.46-4.68) mIU/ML Arterial Blood Potassium 3.5 L (3.6-5.2) mmol/L Venous Blood Potassium (3.6-5.2) mmol/L Urine Opiates Screen (NEGATIVE) Urine Methadone Screen (NEGATIVE) Ur Barbiturates Screen (NEGATIVE) Ur Phencyclidine Scrn (NEGATIVE) Ur Amphetamines Screen (NEGATIVE) U Benzodiazepines Scrn (NEGATIVE) U Oth Cocaine Metabols (NEGATIVE) U Cannabinoids Screen (NEGATIVE) 01/15/17 01/15/17 01/15/17 Range/Units 23:32 23:03 20:30 WBC 13.1 H (4.8-10.8) K/uL RBC 4.72 (4.40-5.90) Mil/uL Hgb 14.4 (12.0-18.0) g/dL Hct 43.8 (35.0-51.0) % MCV 92.7 D (80.0-94.0) fl MCH 30.6 (27.0-31.0) pg MCHC 33.0 (33.0-37.0) g/dL RDW 13.7 (11.5-14.5) % Plt Count 235 (130-400) K/uL MPV (7.2-11.7) fl Neut % (Auto) (50.0-75.0) % Lymph % (Auto) (20.0-40.0) % [place] % (Auto) (0.0-10.0) % Eos % (Auto) (0.0-4.0) % Baso % (Auto) (0.0-2.0) % Neut # (1.8-7.0) K/uL Lymph # (1.0-4.3) K/uL [place] # (0.0-0.8) K/uL Eos # (0.0-0.7) K/uL Baso # (0.0-0.2) K/uL Neutrophils % (Manual) (42-75) % Band Neutrophils % (0-2) % Lymphocytes % (Manual) (20-50) % Monocytes % (Manual) (0-10) % Nucleated RBC % (0-0) % Platelet Estimate (NORMAL) Large Platelets RBC Morphology (NORMAL) PT (9.8-13.1) Seconds INR (0.9-1.2) APTT (25.6-37.1) Seconds pCO2 (35-45) mm/Hg pO2 (80-100) mm/Hg HCO3 (21-28) mmol/L ABG pH (7.35-7.45) ABG Total CO2 (22-28) mmol/L ABG O2 Saturation (95-98) % ABG O2 Content (15-23) ML/dL ABG Base Excess (-2.0-3.0) mmol/L ABG Hemoglobin (11.7-17.4) g/dL ABG Carboxyhemoglobin (0.5-1.5) % POC ABG HHb (Measured) (0.0-5.0) % ABG Methemoglobin (0.0-3.0) % ABG O2 Capacity (16-24) mL/dL Ru Test ABG Potassium (3.6-5.2) mmol/L VBG pH (7.32-7.43) VBG pCO2 (40-60) mmHg VBG HCO3 mmol/L VBG Total CO2 (22-28) mmol/L VBG O2 Sat (Calc) (40-65) % VBG Base Excess (0.0-2.0) mmol/L VBG Potassium (3.6-5.2) mmol/L A-a O2 Difference mm/Hg Hgb O2 Saturation (95.0-98.0) % Glucose (75-110) mg/dL Lactate (0.7-2.1) mmol/L Vent Mode Mechanical Rate FiO2 % Tidal Volume Crit Value Called To Crit Value Called By Crit Value Read Back Blood Gas Notified Time Sodium 147 (132-148) mmol/l Potassium 4.6 (3.6-5.0) MMOL/L Chloride 116 H (98-107) mmol/L Carbon Dioxide 17 L (22-30) mmol/L Anion Gap 19 (10-20) BUN 23 H (9-20) mg/dl Creatinine 2.1 H (0.8-1.5) mg/dL Est GFR ( Amer) 39 Est GFR (Non-Af Amer) 32 POC Glucose (mg/dL) 152 H (65-110) mg/dL Random Glucose 160 H (75-110) mg/dL Lactic Acid (0.7-2.1) MMOL/L Calcium 8.1 L (8.4-10.2) mg/dL Phosphorus 8.5 H (2.5-4.5) mg/dl Magnesium 2.4 H (1.6-2.3) MG/DL Total Bilirubin 0.5 (0.2-1.3) mg/dl AST 717 H D (17-59) U/L ALT 627 H D (21-72) U/L Alkaline Phosphatase 170 H D (38-126) U/L Troponin I (0.00-0.120) ng/mL Total Protein 7.2 (6.3-8.2) G/DL Albumin 4.3 (3.5-5.0) g/dL Globulin 2.9 (2.2-3.9) gm/dL Albumin/Globulin Ratio 1.5 (1.0-2.1) Triglycerides (0-149) mg/DL Cholesterol (0-199) mg/dL LDL Cholesterol Direct (0-129) mg/dL HDL Cholesterol (30-70) MG/DL TSH 3rd Generation (0.46-4.68) mIU/ML Arterial Blood Potassium (3.6-5.2) mmol/L Venous Blood Potassium (3.6-5.2) mmol/L Urine Opiates Screen (NEGATIVE) Urine Methadone Screen (NEGATIVE) Ur Barbiturates Screen (NEGATIVE) Ur Phencyclidine Scrn (NEGATIVE) Ur Amphetamines Screen (NEGATIVE) U Benzodiazepines Scrn (NEGATIVE) U Oth Cocaine Metabols (NEGATIVE) U Cannabinoids Screen (NEGATIVE) 01/15/17 01/15/17 01/15/17 Range/Units 20:30 20:30 18:28 WBC (4.8-10.8) K/uL RBC (4.40-5.90) Mil/uL Hgb (12.0-18.0) g/dL Hct (35.0-51.0) % MCV (80.0-94.0) fl MCH (27.0-31.0) pg MCHC (33.0-37.0) g/dL RDW (11.5-14.5) % Plt Count (130-400) K/uL MPV (7.2-11.7) fl Neut % (Auto) (50.0-75.0) % Lymph % (Auto) (20.0-40.0) % [place] % (Auto) (0.0-10.0) % Eos % (Auto) (0.0-4.0) % Baso % (Auto) (0.0-2.0) % Neut # (1.8-7.0) K/uL Lymph # (1.0-4.3) K/uL [place] # (0.0-0.8) K/uL Eos # (0.0-0.7) K/uL Baso # (0.0-0.2) K/uL Neutrophils % (Manual) (42-75) % Band Neutrophils % (0-2) % Lymphocytes % (Manual) (20-50) % Monocytes % (Manual) (0-10) % Nucleated RBC % (0-0) % Platelet Estimate (NORMAL) Large Platelets RBC Morphology (NORMAL) PT (9.8-13.1) Seconds INR (0.9-1.2) APTT (25.6-37.1) Seconds pCO2 (35-45) mm/Hg pO2 (80-100) mm/Hg HCO3 (21-28) mmol/L ABG pH (7.35-7.45) ABG Total CO2 (22-28) mmol/L ABG O2 Saturation (95-98) % ABG O2 Content (15-23) ML/dL ABG Base Excess (-2.0-3.0) mmol/L ABG Hemoglobin (11.7-17.4) g/dL ABG Carboxyhemoglobin (0.5-1.5) % POC ABG HHb (Measured) (0.0-5.0) % ABG Methemoglobin (0.0-3.0) % ABG O2 Capacity (16-24) mL/dL Ru Test ABG Potassium (3.6-5.2) mmol/L VBG pH (7.32-7.43) VBG pCO2 (40-60) mmHg VBG HCO3 mmol/L VBG Total CO2 (22-28) mmol/L VBG O2 Sat (Calc) (40-65) % VBG Base Excess (0.0-2.0) mmol/L VBG Potassium (3.6-5.2) mmol/L A-a O2 Difference mm/Hg Hgb O2 Saturation (95.0-98.0) % Glucose (75-110) mg/dL Lactate (0.7-2.1) mmol/L Vent Mode Mechanical Rate FiO2 % Tidal Volume Crit Value Called To Crit Value Called By Crit Value Read Back Blood Gas Notified Time Sodium (132-148) mmol/l Potassium (3.6-5.0) MMOL/L Chloride (98-107) mmol/L Carbon Dioxide (22-30) mmol/L Anion Gap (10-20) BUN (9-20) mg/dl Creatinine (0.8-1.5) mg/dL Est GFR ( Amer) Est GFR (Non-Af Amer) POC Glucose (mg/dL) 259 H (65-110) mg/dL Random Glucose (75-110) mg/dL Lactic Acid 3.3 H (0.7-2.1) MMOL/L Calcium (8.4-10.2) mg/dL Phosphorus (2.5-4.5) mg/dl Magnesium (1.6-2.3) MG/DL Total Bilirubin (0.2-1.3) mg/dl AST (17-59) U/L ALT (21-72) U/L Alkaline Phosphatase (38-126) U/L Troponin I 39.2000 H* (0.00-0.120) ng/mL Total Protein (6.3-8.2) G/DL Albumin (3.5-5.0) g/dL Globulin (2.2-3.9) gm/dL Albumin/Globulin Ratio (1.0-2.1) Triglycerides (0-149) mg/DL Cholesterol (0-199) mg/dL LDL Cholesterol Direct (0-129) mg/dL HDL Cholesterol (30-70) MG/DL TSH 3rd Generation (0.46-4.68) mIU/ML Arterial Blood Potassium (3.6-5.2) mmol/L Venous Blood Potassium (3.6-5.2) mmol/L Urine Opiates Screen (NEGATIVE) Urine Methadone Screen (NEGATIVE) Ur Barbiturates Screen (NEGATIVE) Ur Phencyclidine Scrn (NEGATIVE) Ur Amphetamines Screen (NEGATIVE) U Benzodiazepines Scrn (NEGATIVE) U Oth Cocaine Metabols (NEGATIVE) U Cannabinoids Screen (NEGATIVE) 01/15/17 Range/Units 18:04 WBC (4.8-10.8) K/uL RBC (4.40-5.90) Mil/uL Hgb (12.0-18.0) g/dL Hct (35.0-51.0) % MCV (80.0-94.0) fl MCH (27.0-31.0) pg MCHC (33.0-37.0) g/dL RDW (11.5-14.5) % Plt Count (130-400) K/uL MPV (7.2-11.7) fl Neut % (Auto) (50.0-75.0) % Lymph % (Auto) (20.0-40.0) % [place] % (Auto) (0.0-10.0) % Eos % (Auto) (0.0-4.0) % Baso % (Auto) (0.0-2.0) % Neut # (1.8-7.0) K/uL Lymph # (1.0-4.3) K/uL [place] # (0.0-0.8) K/uL Eos # (0.0-0.7) K/uL Baso # (0.0-0.2) K/uL Neutrophils % (Manual) (42-75) % Band Neutrophils % (0-2) % Lymphocytes % (Manual) (20-50) % Monocytes % (Manual) (0-10) % Nucleated RBC % (0-0) % Platelet Estimate (NORMAL) Large Platelets RBC Morphology (NORMAL) PT (9.8-13.1) Seconds INR (0.9-1.2) APTT (25.6-37.1) Seconds pCO2 (35-45) mm/Hg pO2 (80-100) mm/Hg HCO3 (21-28) mmol/L ABG pH (7.35-7.45) ABG Total CO2 (22-28) mmol/L ABG O2 Saturation (95-98) % ABG O2 Content (15-23) ML/dL ABG Base Excess (-2.0-3.0) mmol/L ABG Hemoglobin (11.7-17.4) g/dL ABG Carboxyhemoglobin (0.5-1.5) % POC ABG HHb (Measured) (0.0-5.0) % ABG Methemoglobin (0.0-3.0) % ABG O2 Capacity (16-24) mL/dL Ru Test ABG Potassium (3.6-5.2) mmol/L VBG pH (7.32-7.43) VBG pCO2 (40-60) mmHg VBG HCO3 mmol/L VBG Total CO2 (22-28) mmol/L VBG O2 Sat (Calc) (40-65) % VBG Base Excess (0.0-2.0) mmol/L VBG Potassium (3.6-5.2) mmol/L A-a O2 Difference mm/Hg Hgb O2 Saturation (95.0-98.0) % Glucose (75-110) mg/dL Lactate (0.7-2.1) mmol/L Vent Mode Mechanical Rate FiO2 % Tidal Volume Crit Value Called To Crit Value Called By Crit Value Read Back Blood Gas Notified Time Sodium (132-148) mmol/l Potassium (3.6-5.0) MMOL/L Chloride (98-107) mmol/L Carbon Dioxide (22-30) mmol/L Anion Gap (10-20) BUN (9-20) mg/dl Creatinine (0.8-1.5) mg/dL Est GFR ( Amer) Est GFR (Non-Af Amer) POC Glucose (mg/dL) (65-110) mg/dL Random Glucose (75-110) mg/dL Lactic Acid (0.7-2.1) MMOL/L Calcium (8.4-10.2) mg/dL Phosphorus (2.5-4.5) mg/dl Magnesium (1.6-2.3) MG/DL Total Bilirubin (0.2-1.3) mg/dl AST (17-59) U/L ALT (21-72) U/L Alkaline Phosphatase (38-126) U/L Troponin I (0.00-0.120) ng/mL Total Protein (6.3-8.2) G/DL Albumin (3.5-5.0) g/dL Globulin (2.2-3.9) gm/dL Albumin/Globulin Ratio (1.0-2.1) Triglycerides (0-149) mg/DL Cholesterol (0-199) mg/dL LDL Cholesterol Direct (0-129) mg/dL HDL Cholesterol (30-70) MG/DL TSH 3rd Generation (0.46-4.68) mIU/ML Arterial Blood Potassium (3.6-5.2) mmol/L Venous Blood Potassium (3.6-5.2) mmol/L Urine Opiates Screen Negative (NEGATIVE) Urine Methadone Screen Negative (NEGATIVE) Ur Barbiturates Screen Negative (NEGATIVE) Ur Phencyclidine Scrn Negative (NEGATIVE) Ur Amphetamines Screen Negative (NEGATIVE) U Benzodiazepines Scrn Negative (NEGATIVE) U Oth Cocaine Metabols Negative (NEGATIVE) U Cannabinoids Screen Negative (NEGATIVE) Laboratory Results - last 24 hr 01/15/17 01/15/17 01/15/17 18:04 18:28 20:30 WBC RBC Hgb Hct MCV MCH MCHC RDW Plt Count MPV Neut % (Auto) Lymph % (Auto) [place] % (Auto) Eos % (Auto) Baso % (Auto) Neut # Lymph # [place] # Eos # Baso # Neutrophils % (Manual) Band Neutrophils % Lymphocytes % (Manual) Monocytes % (Manual) Nucleated RBC % Platelet Estimate Large Platelets RBC Morphology PT INR APTT pCO2 pO2 HCO3 ABG pH ABG Total CO2 ABG O2 Saturation ABG O2 Content ABG Base Excess ABG Hemoglobin ABG Carboxyhemoglobin POC ABG HHb (Measured) ABG Methemoglobin ABG O2 Capacity Ru Test ABG Potassium VBG pH VBG pCO2 VBG HCO3 VBG Total CO2 VBG O2 Sat (Calc) VBG Base Excess VBG Potassium A-a O2 Difference Hgb O2 Saturation Glucose Lactate Vent Mode Mechanical Rate FiO2 Tidal Volume Crit Value Called To Crit Value Called By Crit Value Read Back Blood Gas Notified Time Sodium Potassium Chloride Carbon Dioxide Anion Gap BUN Creatinine Est GFR ( Amer) Est GFR (Non-Af Amer) POC Glucose (mg/dL) 259 H Random Glucose Lactic Acid Calcium Phosphorus Magnesium Total Bilirubin AST ALT Alkaline Phosphatase Troponin I 39.2000 H* Total Protein Albumin Globulin Albumin/Globulin Ratio Triglycerides Cholesterol LDL Cholesterol Direct HDL Cholesterol TSH 3rd Generation Arterial Blood Potassium Venous Blood Potassium Urine Opiates Screen Negative Urine Methadone Screen Negative Ur Barbiturates Screen Negative Ur Phencyclidine Scrn Negative Ur Amphetamines Screen Negative U Benzodiazepines Scrn Negative U Oth Cocaine Metabols Negative U Cannabinoids Screen Negative 01/15/17 01/15/17 01/15/17 20:30 20:30 23:03 WBC 13.1 H RBC 4.72 Hgb 14.4 Hct 43.8 MCV 92.7 D MCH 30.6 MCHC 33.0 RDW 13.7 Plt Count 235 MPV Neut % (Auto) Lymph % (Auto) [place] % (Auto) Eos % (Auto) Baso % (Auto) Neut # Lymph # [place] # Eos # Baso # Neutrophils % (Manual) Band Neutrophils % Lymphocytes % (Manual) Monocytes % (Manual) Nucleated RBC % Platelet Estimate Large Platelets RBC Morphology PT INR APTT pCO2 pO2 HCO3 ABG pH ABG Total CO2 ABG O2 Saturation ABG O2 Content ABG Base Excess ABG Hemoglobin ABG Carboxyhemoglobin POC ABG HHb (Measured) ABG Methemoglobin ABG O2 Capacity Ru Test ABG Potassium VBG pH VBG pCO2 VBG HCO3 VBG Total CO2 VBG O2 Sat (Calc) VBG Base Excess VBG Potassium A-a O2 Difference Hgb O2 Saturation Glucose Lactate Vent Mode Mechanical Rate FiO2 Tidal Volume Crit Value Called To Crit Value Called By Crit Value Read Back Blood Gas Notified Time Sodium 147 Potassium 4.6 Chloride 116 H Carbon Dioxide 17 L Anion Gap 19 BUN 23 H Creatinine 2.1 H Est GFR ( Amer) 39 Est GFR (Non-Af Amer) 32 POC Glucose (mg/dL) Random Glucose 160 H Lactic Acid 3.3 H Calcium 8.1 L Phosphorus 8.5 H Magnesium 2.4 H Total Bilirubin 0.5 AST 717 H D ALT 627 H D Alkaline Phosphatase 170 H D Troponin I Total Protein 7.2 Albumin 4.3 Globulin 2.9 Albumin/Globulin Ratio 1.5 Triglycerides Cholesterol LDL Cholesterol Direct HDL Cholesterol TSH 3rd Generation Arterial Blood Potassium Venous Blood Potassium Urine Opiates Screen Urine Methadone Screen Ur Barbiturates Screen Ur Phencyclidine Scrn Ur Amphetamines Screen U Benzodiazepines Scrn U Oth Cocaine Metabols U Cannabinoids Screen 01/15/17 01/15/17 01/16/17 23:32 23:39 01:18 WBC RBC Hgb Hct MCV MCH MCHC RDW Plt Count MPV Neut % (Auto) Lymph % (Auto) [place] % (Auto) Eos % (Auto) Baso % (Auto) Neut # Lymph # [place] # Eos # Baso # Neutrophils % (Manual) Band Neutrophils % Lymphocytes % (Manual) Monocytes % (Manual) Nucleated RBC % Platelet Estimate Large Platelets RBC Morphology PT 12.3 INR 1.1 APTT 107.6 H* D pCO2 45 pO2 92 HCO3 12.9 L ABG pH 7.10 L* ABG Total CO2 15.4 L ABG O2 Saturation 98.3 H ABG O2 Content ABG Base Excess -15.3 L ABG Hemoglobin ABG Carboxyhemoglobin POC ABG HHb (Measured) ABG Methemoglobin ABG O2 Capacity Ru Test Yes ABG Potassium 3.5 L VBG pH VBG pCO2 VBG HCO3 VBG Total CO2 VBG O2 Sat (Calc) VBG Base Excess VBG Potassium A-a O2 Difference 565.0 Hgb O2 Saturation Glucose 149 H Lactate 3.6 H Vent Mode A/c Mechanical Rate 14 FiO2 100.0 Tidal Volume 500 Crit Value Called To Tien marcus rn Crit Value Called By 6075 Crit Value Read Back Y Blood Gas Notified Time 2343 Sodium 144.0 Potassium Chloride 118.0 H Carbon Dioxide Anion Gap BUN Creatinine Est GFR ( Amer) Est GFR (Non-Af Amer) POC Glucose (mg/dL) 152 H Random Glucose Lactic Acid Calcium Phosphorus Magnesium Total Bilirubin AST ALT Alkaline Phosphatase Troponin I Total Protein Albumin Globulin Albumin/Globulin Ratio Triglycerides Cholesterol LDL Cholesterol Direct HDL Cholesterol TSH 3rd Generation Arterial Blood Potassium 3.5 L Venous Blood Potassium Urine Opiates Screen Urine Methadone Screen Ur Barbiturates Screen Ur Phencyclidine Scrn Ur Amphetamines Screen U Benzodiazepines Scrn U Oth Cocaine Metabols U Cannabinoids Screen 01/16/17 01/16/17 01/16/17 01:18 01:18 01:28 WBC 20.8 H D RBC 5.03 Hgb 15.0 Hct 46.7 MCV 92.8 MCH 29.8 MCHC 32.2 L RDW 13.8 Plt Count 220 MPV Neut % (Auto) Lymph % (Auto) [place] % (Auto) Eos % (Auto) Baso % (Auto) Neut # Lymph # [place] # Eos # Baso # Neutrophils % (Manual) Band Neutrophils % Lymphocytes % (Manual) Monocytes % (Manual) Nucleated RBC % Platelet Estimate Large Platelets RBC Morphology PT INR APTT pCO2 pO2 HCO3 ABG pH ABG Total CO2 ABG O2 Saturation ABG O2 Content ABG Base Excess ABG Hemoglobin ABG Carboxyhemoglobin POC ABG HHb (Measured) ABG Methemoglobin ABG O2 Capacity Ru Test ABG Potassium VBG pH VBG pCO2 VBG HCO3 VBG Total CO2 VBG O2 Sat (Calc) VBG Base Excess VBG Potassium A-a O2 Difference Hgb O2 Saturation Glucose Lactate Vent Mode Mechanical Rate FiO2 Tidal Volume Crit Value Called To Crit Value Called By Crit Value Read Back Blood Gas Notified Time Sodium 149 H Potassium 3.1 L Chloride 115 H Carbon Dioxide 20 L Anion Gap 17 BUN 27 H Creatinine 2.4 H Est GFR ( Amer) 33 Est GFR (Non-Af Amer) 27 POC Glucose (mg/dL) 170 H Random Glucose 174 H Lactic Acid Calcium 7.9 L Phosphorus 4.6 H Magnesium 2.4 H Total Bilirubin 0.7 AST 1033 H ALT 593 H Alkaline Phosphatase 124 Troponin I Total Protein 6.6 Albumin 3.8 Globulin 2.7 Albumin/Globulin Ratio 1.4 Triglycerides Cholesterol LDL Cholesterol Direct HDL Cholesterol TSH 3rd Generation Arterial Blood Potassium Venous Blood Potassium Urine Opiates Screen Urine Methadone Screen Ur Barbiturates Screen Ur Phencyclidine Scrn Ur Amphetamines Screen U Benzodiazepines Scrn U Oth Cocaine Metabols U Cannabinoids Screen 01/16/17 01/16/17 01/16/17 04:35 04:35 04:50 WBC 19.2 H RBC 4.94 Hgb 14.9 Hct 45.8 MCV 92.6 MCH 30.2 MCHC 32.6 L RDW 13.7 Plt Count 215 MPV 9.0 Neut % (Auto) 94.6 H Lymph % (Auto) 3.1 L [place] % (Auto) 2.1 Eos % (Auto) 0.1 Baso % (Auto) 0.1 Neut # 18.2 H Lymph # 0.6 L [place] # 0.4 Eos # 0.0 Baso # 0.0 Neutrophils % (Manual) 86 H Band Neutrophils % 1 Lymphocytes % (Manual) 7 L Monocytes % (Manual) 6 Nucleated RBC % 1 H Platelet Estimate Normal Large Platelets Present RBC Morphology Normal PT INR APTT pCO2 pO2 HCO3 ABG pH ABG Total CO2 ABG O2 Saturation ABG O2 Content ABG Base Excess ABG Hemoglobin ABG Carboxyhemoglobin POC ABG HHb (Measured) ABG Methemoglobin ABG O2 Capacity Ru Test ABG Potassium VBG pH VBG pCO2 VBG HCO3 VBG Total CO2 VBG O2 Sat (Calc) VBG Base Excess VBG Potassium A-a O2 Difference Hgb O2 Saturation Glucose Lactate Vent Mode Mechanical Rate FiO2 Tidal Volume Crit Value Called To Crit Value Called By Crit Value Read Back Blood Gas Notified Time Sodium 147 Potassium 3.6 Chloride 113 H Carbon Dioxide 22 Anion Gap 16 BUN 30 H Creatinine 2.6 H Est GFR ( Amer) 30 Est GFR (Non-Af Amer) 25 POC Glucose (mg/dL) 152 H Random Glucose 165 H Lactic Acid Calcium 7.8 L Phosphorus 5.5 H Magnesium 2.5 H Total Bilirubin 0.5 AST 1108 H ALT 580 H Alkaline Phosphatase 129 H Troponin I 109.0000 H* Total Protein 6.6 Albumin 3.7 Globulin 2.9 Albumin/Globulin Ratio 1.3 Triglycerides 139 Cholesterol 183 LDL Cholesterol Direct 124 HDL Cholesterol 31 TSH 3rd Generation 3.19 Arterial Blood Potassium Venous Blood Potassium Urine Opiates Screen Urine Methadone Screen Ur Barbiturates Screen Ur Phencyclidine Scrn Ur Amphetamines Screen U Benzodiazepines Scrn U Oth Cocaine Metabols U Cannabinoids Screen 01/16/17 01/16/17 01/16/17 05:00 05:00 08:54 WBC RBC Hgb Hct MCV MCH MCHC RDW Plt Count MPV Neut % (Auto) Lymph % (Auto) [place] % (Auto) Eos % (Auto) Baso % (Auto) Neut # Lymph # [place] # Eos # Baso # Neutrophils % (Manual) Band Neutrophils % Lymphocytes % (Manual) Monocytes % (Manual) Nucleated RBC % Platelet Estimate Large Platelets RBC Morphology PT INR APTT 66.9 H D pCO2 76 H* pO2 103 H 29 L HCO3 15.2 L ABG pH 7.03 L* ABG Total CO2 22.4 ABG O2 Saturation 98.4 H ABG O2 Content 21.4 ABG Base Excess -12.4 L ABG Hemoglobin 15.9 ABG Carboxyhemoglobin 1.5 POC ABG HHb (Measured) 1.6 ABG Methemoglobin 1.6 ABG O2 Capacity 21.7 Ru Test Yes ABG Potassium VBG pH 7.00 L* VBG pCO2 97 H* VBG HCO3 15.6 VBG Total CO2 26.9 VBG O2 Sat (Calc) 53.9 VBG Base Excess -9.5 L VBG Potassium 3.5 L A-a O2 Difference 515.0 Hgb O2 Saturation 95.4 Glucose 212 H Lactate 3.7 H Vent Mode A/c Mechanical Rate 14 FiO2 100.0 100.0 Tidal Volume 500 Crit Value Called To Tien santos Crit Value Called By 6075 Ms Crit Value Read Back Y Y Blood Gas Notified Time 508 903 Sodium 140.0 Potassium Chloride 109.0 H Carbon Dioxide Anion Gap BUN Creatinine Est GFR ( Amer) Est GFR (Non-Af Amer) POC Glucose (mg/dL) Random Glucose Lactic Acid Calcium Phosphorus Magnesium Total Bilirubin AST ALT Alkaline Phosphatase Troponin I Total Protein Albumin Globulin Albumin/Globulin Ratio Triglycerides Cholesterol LDL Cholesterol Direct HDL Cholesterol TSH 3rd Generation Arterial Blood Potassium Venous Blood Potassium 3.5 L Urine Opiates Screen Urine Methadone Screen Ur Barbiturates Screen Ur Phencyclidine Scrn Ur Amphetamines Screen U Benzodiazepines Scrn U Oth Cocaine Metabols U Cannabinoids Screen 01/16/17 09:02 WBC RBC Hgb Hct MCV MCH MCHC RDW Plt Count MPV Neut % (Auto) Lymph % (Auto) [place] % (Auto) Eos % (Auto) Baso % (Auto) Neut # Lymph # [place] # Eos # Baso # Neutrophils % (Manual) Band Neutrophils % Lymphocytes % (Manual) Monocytes % (Manual) Nucleated RBC % Platelet Estimate Large Platelets RBC Morphology PT INR APTT pCO2 49 H pO2 149 H HCO3 15.7 L ABG pH 7.15 L* ABG Total CO2 18.6 L ABG O2 Saturation 99.2 H ABG O2 Content 20.6 ABG Base Excess -11.8 L ABG Hemoglobin 15.0 ABG Carboxyhemoglobin 1.1 POC ABG HHb (Measured) 0.8 ABG Methemoglobin 1.6 ABG O2 Capacity 20.8 Ru Test Yes ABG Potassium VBG pH VBG pCO2 VBG HCO3 VBG Total CO2 VBG O2 Sat (Calc) VBG Base Excess VBG Potassium A-a O2 Difference 503.0 Hgb O2 Saturation 96.5 Glucose Lactate Vent Mode A/c Mechanical Rate 14 FiO2 100.0 Tidal Volume 500 Crit Value Called To Brendon santos Crit Value Called By 23 Crit Value Read Back Y Blood Gas Notified Time 906 Sodium Potassium Chloride Carbon Dioxide Anion Gap BUN Creatinine Est GFR ( Amer) Est GFR (Non-Af Amer) POC Glucose (mg/dL) Random Glucose Lactic Acid Calcium Phosphorus Magnesium Total Bilirubin AST ALT Alkaline Phosphatase Troponin I Total Protein Albumin Globulin Albumin/Globulin Ratio Triglycerides Cholesterol LDL Cholesterol Direct HDL Cholesterol TSH 3rd Generation Arterial Blood Potassium Venous Blood Potassium Urine Opiates Screen Urine Methadone Screen Ur Barbiturates Screen Ur Phencyclidine Scrn Ur Amphetamines Screen U Benzodiazepines Scrn U Oth Cocaine Metabols U Cannabinoids Screen EKG/Cardiology Studies: Cardiology / EKG Studies 01/16/17 09:00 ELECTROCARDIOGRAM DAILY Comment: Mode Of Transportation: Reason For Exam: IN Fingerstick Blood Sugar Results: 152 Review of Systems - Review of Systems Systems not reviewed;Unavailable: Intubated Critical Care Progress Note - Ventilator Checklist Head of Bed 30 Degrees: Yes Daily Sedation Vacation: No (On Therapeutic Hypothermia) Daily Assessment of Readiness to Wean: No (On Therapeutic Hypothermia) Daily Spontaneous Breathing Trial: No (On Therapeutic Hypothermia) PUD Prophalyxis: Yes DVT Prophylaxis: Yes Oral Care with Chlorhexidine Gluconate {CHG}: Yes - Vent Settings MODE:: ASSIST CONTROL TIDAL VOLUME:: 500 RESP RATE:: 14 FIO2:: 100 PEEP:: 0 - Extremities/Vascular Does the Patient have a Central Venous Catheter?: Yes Insertion Site: Femoral Vein Does the Patient need a Central Venous Catheter?: Yes Does the Patient have a Page Catheter?: Yes Does the Patient need a Page Catheter?: Yes Catheter Insertion Criteria: Need for accurate measurement of output in critically ill patient - Prophylaxis GI Prophylaxis GI: Pepsid - Prophylaxis DVT Prophylaxis DVT: SCDs - Nutrition Nutrition: Nutrition Category Date Time Status NPO Diet [DIET] Diets 01/15/17 Breakfast Active Assessment/Plan - Assessment and Plan (Free Text) Assessment: Major problems: 1. Cardiac ( VF VT) Arrest 2. Respiratory Arrest 3. Anoxic Encephalopathy 2 #1 4. Acute Renal Failure 2 ATN 5. NSTEMI 6. UGI Bleed 2 recent Post-NSTEMI anticoagulation Plan: PLAN: 1. MV support with attempts to decrease fiO2 as tolerated. Would increase set rate to help compensate for hypercapneic Resp acidosis. 2. Check ABG, VBG 3. Arterial Line monitoring, maintain MAP at or above 80 during cooling process. May need vasopressors if MAP only 64 now. 4. Ischemic / Shock Liver evident with elevated and abnl LFTs. Watch coags. 5. CT Brain results noted with diffuse cerebral edema already evident. Consider Mannitol / hypervent/ HOB elevation. ?? utility now from Therapeutic Hypothermia 6. ECHO remains pending. 7. Check VBG, consider Dobutamine. 8. Increase IVF hydration, consider Nephrology eval. 9. Will not prognosticate for now until re-warmed, but cerebral edema evident prior to cooling was noted and already portends to a poor prognosis.
[2017-01-16 10:59] LABS: HEMOGLOBIN 14.8 g/dL (12.0-18.0); MEAN CELL VOLUME 91.1 fl (80.0-94.0); MEAN CORPUSCULAR HEMOGLOBIN 30.7 pg (27.0-31.0); MEAN CORPUSCULAR HGB CONC 33.7 g/dL (33.0-37.0); RBC 4.84 Mil/uL (4.40-5.90); RED CELL DISTRIBUTION WIDTH 13.8 % (11.5-14.5); WHITE BLOOD COUNT 17.1 K/uL (4.8-10.8)
[2017-01-16 11:17] LABS: PROTHROMBIN TIME 11.1 Seconds (9.8-13.1)
[2017-01-16 11:18] LABS: PARTIAL THROMBOPLASTIN TIME 35.4 Seconds (25.6-37.1)
--- NOTE | 2017-01-16 11:19 | CP.PCM.PN ---
Subjective - Date & Time of Evaluation Date of Evaluation: 01/16/17 Time of Evaluation: 10:30 - Subjective Subjective: Pt remains unresponsive Intubated on Mech Vent He is HYPOthermic , requiring Orlando Hugger On Pressors- Phenylephrine, Dobutamine , Vasopressin and Norepinephrine drips Oliguric - minimal UO less than 50ml since this am Objective - Vital Signs/Intake and Output Vital Signs (last 24 hours): Temp Pulse Resp BP Pulse Ox 93.5 F L 70 22 143/61 98 01/16/17 10:15 01/16/17 10:15 01/16/17 10:15 01/16/17 10:15 01/16/17 09:15 Intake and Output: 01/16/17 01/16/17 06:59 18:59 Intake Total 2891 95 Output Total 1315 60 Balance 1576 35 - Medications Medications: Current Medications Acetaminophen (Tylenol 325mg Tab) 650 mg PO Q6H PRN PRN Reason: Fever >100.4 F Aspirin (Aspirin Chewable) 81 mg PO DAILY VIKY Last Admin: 01/15/17 18:47 Dose: 81 mg Atorvastatin Calcium (Lipitor) 40 mg PO DAILY VIYK Clopidogrel Bisulfate (Plavix) 75 mg PO DAILY VIKY Docusate Sodium (Colace) 100 mg PO BID PRN PRN Reason: Constipation Amiodarone HCl 900 mg/ (Dextrose) 518 mls @ 34.53 mls/hr IVPB .Q15H1M VIKY; 1 MG /MIN PRN Reason: Protocol Last Admin: 01/15/17 20:50 Dose: 34.53 mls/hr Heparin Sodium/Dextrose (Heparin 25,000 Units/250ml In D5w) 25,000 units in 250 mls @ 10 mls/hr IV .Q24H VIKY; Per Protocol PRN Reason: Protocol Last Admin: 01/15/17 18:59 Dose: 10 mls/hr Pantoprazole Sodium 40 mg/ (Sodium Chloride) 100 mls @ 20 mls/hr IVPB Q5H [facility]KY PRN Reason: 8 MG/HR Last Admin: 01/16/17 03:30 Dose: 20 mls/hr Norepinephrine Bitartrate 4 mg (/ Dextrose) 254 mls @ 9.52 mls/hr IV .Q24H [facility]KY ; 2.5 MCG/MIN PRN Reason: Protocol Sodium Bicarbonate 150 meq/ (Dextrose) 1,150 mls @ 75 mls/hr IV .[id number] [facility]KY Stop: 01/16/17 14:23 Last Admin: 01/15/17 23:52 Dose: 75 mls/hr Dobutamine HCl/Dextrose (Dobutamine/Dextrose 5% 500mg/250ml) 500 mg in 250 mls @ 13.336 mls/hr IV .[id number] VIKY PRN Reason: 5 MCG/KG/MIN Lactated Ringer's (Lactated Ringer's) 1,000 mls @ 100 mls/hr IV .Q10H [facility] Stop: 01/18/17 10:46 Metoprolol Tartrate (Lopressor) 6.25 mg PO Q12 VIKY Last Admin: 01/15/17 18:47 Dose: 6.25 mg Pantoprazole Sodium (Protonix Inj) 40 mg IVP DAILY VIKY Last Admin: 01/16/17 09:09 Dose: 40 mg - Labs Labs: 01/16/17 10:30 01/16/17 04:35 PT 11.1 Seconds (9.8-13.1) 01/16/17 10:30 INR 1.0 (0.9-1.2) 01/16/17 10:30 APTT 35.4 Seconds (25.6-37.1) D 01/16/17 10:30 - Constitutional Appears: Chronically Ill, Other (Intubated on Mech Vent, on Orlando Hugger ) - Head Exam Head Exam: NORMAL INSPECTION, NORMOCEPHALIC - Eye Exam Eye Exam: Normal appearance Additional comments: pupils normal in size very sluggishly reactive to light - ENT Exam ENT Exam: Mucous Membranes Dry - Respiratory Exam Respiratory Exam: Rales, Rhonchi Additional comments: Intubated , on mech Vent - Cardiovascular Exam Cardiovascular Exam: Irregular Rhythm, +S1, +S2 - GI/Abdominal Exam GI & Abdominal Exam: Distended. absent: Normal Bowel Sounds - Extremities Exam Extremities Exam: Pedal Edema - Neurological Exam Additional comments: unresponsive - Skin Skin Exam: Normal Color Additional comments: cold Assessment and Plan (1) Cardiac arrest Status: Acute (2) Respiratory failure with hypoxia Status: Acute (3) Metabolic acidosis Status: Acute (4) NSTEMI (non-ST elevated myocardial infarction) Status: Acute (5) Anoxic encephalopathy Status: Acute (6) Shock liver Status: Acute (7) Acute renal failure Status: Acute - Assessment and Plan (Free Text) Assessment: 61 year old male with no known past medical history was brought in by EMS after being found collapsed on sidewalk. Patient was unresponsive for approximately 20 minutes, was found to be in AFIB and was shocked 4 times. He was also given 4 Epi, 1 sodium bicarb, 1 ca gluconate, and Amiodarone bolus 300 mg. He was intubated in the field, and had IO placed for access. In the ER pt was found to be PEA, and alternated between PEA and VFIB while ACLS protocol was followed. Central line placed, code heart contacted, no activation. CT head edema consistent wtih hypoxia. At present , he remains Unresponsive, intubated on Mech Vent , and is on 4 pressors. (1) Cardiac arrest Status: Acute Pt is on 4 pressors - Norepinephrine, Phenylephrine, Dobutamine and Vasopressine Remains unresponsive, intubated on Mech Vent Hypothermia protocol started however pt very hypothermic and so Orlando Hugger placed Cardio consulted- Dr Carrillo (2) Respiratory failure with hypoxia Status: Acute Pt is intubated , on mech Vent Pulm consult - Dr Silva (3) Metabolic acidosis/Lactic acidosis sec to above Status: Acute on Sodium Bicarb (4) NSTEMI (non-ST elevated myocardial infarction) Status: Acute Troponin elevated to 109 Cardio consulted on Heparin drip (5) Anoxic encephalopathy Status: Acute (6) Shock liver Status: Acute LFTS elevated (7) Acute renal failure likely ATN Status: Acute IVF hydration pressors Nephrology consult
[2017-01-16 11:35] LABS: CALCIUM 7.6 mg/dL (8.4-10.2); MAGNESIUM 2.3 MG/DL (1.6-2.3)
[2017-01-16] MEDS: DOBUTamine 500mg/250ml D5W 500 MG/250 ML BAG IV SCH (11:44)
[2017-01-16] MEDS: Lactated Ringer's 1,000 ML IV SCH ×2 (11:50→21:12)
[2017-01-16 12:07] LABS: TROPONIN I 90.9 ng/mL (0.00-0.120)
[2017-01-16] MEDS ORDERED: Phenylephrine 10 mg/ml Inj ONE (12:41)
--- NOTE | 2017-01-16 13:01 | CP.PCM.PN ---
Subjective - Date & Time of Evaluation Date of Evaluation: 01/16/17 Time of Evaluation: 13:00 - Subjective Subjective: unresponsive on Vent No recurrence of VT on Levofed, Neosynephrin and Amio drips Objective - Vital Signs/Intake and Output Vital Signs (last 24 hours): Temp Pulse Resp BP Pulse Ox 90.3 F L 54 L 18 81/45 L 98 01/16/17 11:45 01/16/17 12:47 01/16/17 11:45 01/16/17 12:47 01/16/17 09:15 Intake and Output: 01/16/17 01/16/17 06:59 18:59 Intake Total 2891 491 Output Total 1315 70 Balance 1576 421 - Medications Medications: Current Medications Acetaminophen (Tylenol 325mg Tab) 650 mg PO Q6H PRN PRN Reason: Fever >100.4 F Aspirin (Aspirin Chewable) 81 mg PO DAILY VIKY Last Admin: 01/15/17 18:47 Dose: 81 mg Atorvastatin Calcium (Lipitor) 40 mg PO DAILY VIKY Clopidogrel Bisulfate (Plavix) 75 mg PO DAILY VIKY Docusate Sodium (Colace) 100 mg PO BID PRN PRN Reason: Constipation Amiodarone HCl 900 mg/ (Dextrose) 518 mls @ 34.53 mls/hr IVPB .Q15H1M VIKY; 1 MG /MIN PRN Reason: Protocol Last Admin: 01/15/17 20:50 Dose: 34.53 mls/hr Heparin Sodium/Dextrose (Heparin 25,000 Units/250ml In D5w) 25,000 units in 250 mls @ 10 mls/hr IV .Q24H VIKY; Per Protocol PRN Reason: Protocol Last Admin: 01/15/17 18:59 Dose: 10 mls/hr Pantoprazole Sodium 40 mg/ (Sodium Chloride) 100 mls @ 20 mls/hr IVPB Q5H [facility]KY PRN Reason: 8 MG/HR Last Admin: 01/16/17 03:30 Dose: 20 mls/hr Norepinephrine Bitartrate 4 mg (/ Dextrose) 254 mls @ 9.52 mls/hr IV .Q24H VIKY ; 2.5 MCG/MIN PRN Reason: Protocol Sodium Bicarbonate 150 meq/ (Dextrose) 1,150 mls @ 75 mls/hr IV .[id number] [facility]KY Stop: 01/16/17 14:23 Last Admin: 01/15/17 23:52 Dose: 75 mls/hr Dobutamine HCl/Dextrose (Dobutamine/Dextrose 5% 500mg/250ml) 500 mg in 250 mls @ 13.336 mls/hr IV .[id number] VIKY PRN Reason: 5 MCG/KG/MIN Last Admin: 01/16/17 11:44 Dose: 13.336 mls/hr Lactated Ringer's (Lactated Ringer's) 1,000 mls @ 100 mls/hr IV .Q10H VIKY Stop: 01/18/17 10:46 Last Admin: 01/16/17 11:50 Dose: 100 mls/hr Phenylephrine HCl 10 mg/ (Sodium Chloride) 251 mls @ 30.12 mls/hr IV .Q8H20M VIKY; 20 MCG/MIN PRN Reason: Protocol Last Titration: 01/16/17 12:52 Dose: 30 mcg/min, 45.18 mls/hr Metoprolol Tartrate (Lopressor) 6.25 mg PO Q12 [facility] Last Admin: 01/15/17 18:47 Dose: 6.25 mg Pantoprazole Sodium (Protonix Inj) 40 mg IVP DAILY [facility] Last Admin: 01/16/17 09:09 Dose: 40 mg - Labs Labs: 01/16/17 10:30 01/16/17 10:30 PT 11.1 Seconds (9.8-13.1) 01/16/17 10:30 INR 1.0 (0.9-1.2) 01/16/17 10:30 APTT 35.4 Seconds (25.6-37.1) D 01/16/17 10:30 - Constitutional Appears: Toxic - Head Exam Head Exam: ATRAUMATIC - Respiratory Exam Respiratory Exam: Rales, Wheezes - Cardiovascular Exam Cardiovascular Exam: REGULAR RHYTHM - GI/Abdominal Exam GI & Abdominal Exam: Hypoactive Bowel Sounds - Extremities Exam Extremities Exam: Normal Inspection Assessment and Plan - Assessment and Plan (Free Text) Assessment: s/p Cardiac arrest, Monomorphic VT Paroxysmal A Fib Cerebral Edema Hypotension CKD Elevated liver enzymes Plan: Aspirin 81 mg PO DAILY (Lipitor) 40 mg PO DAILY VIKY Clopidogrel Bisulfate (Plavix) 75 mg PO DAILY Amiodarone drip Heparin drip Pantoprazole Sodium 40 mg/ (Sodium Chloride) 100 mls @ 20 mls/hr IVPB Q5H [facility] Norepinephrine drip Sodium Bicarbonate 150 meq/ (Dextrose) 1,150 mls @ 75 mls/hr IV .[id number] [facility] Stop: 01/16/17 14:23 Last Admin: 01/15/17 23:52 Dose: 75 mls/hr Dobutamine HCl/Dextrose (Dobutamine/Dextrose 5% 500mg/250ml) 500 mg in 250 mls @ 13.336 mls/hr IV .[id number] [facility] PRN Reason: 5 MCG/KG/MIN Last Admin: 01/16/17 11:44 Dose: 13.336 mls/hr Lactated Ringer's (Lactated Ringer's) 1,000 mls @ 100 mls/hr IV .Q10H [facility] Stop: 01/18/17 10:46 Last Admin: 01/16/17 11:50 Dose: 100 mls/hr Phenylephrine HCl drip Metoprolol Tartrate (Lopressor) 6.25 mg PO Q12 [facility] Prognosis is grave Not a suitable candidate for transfer for Cath
[2017-01-16 14:32] LABS: VENOUS BLOOD GAS BASE EXCESS -12.3 mmol/L (0.0-2.0); VENOUS BLOOD GAS PCO2 99 mmHg (40-60); VENOUS BLOOD GAS PO2 38 mm/Hg (30-55); VENOUS BLOOD PH 6.95 (7.32-7.43)
[2017-01-16] MEDS: PHENYLEPHRINE IV SCH (15:00)
[2017-01-16] MEDS: SODIUM CHLORIDE 0.9% IV SCH (15:00)
--- NOTE | 2017-01-16 15:37 | CP.PCM.PCO ---
Physician Communication Note - Physician Communication Note Physician Communication Note: Therapeutic Hypothermia stopped at 1230Pm due to refractory Shock State.
--- NOTE | 2017-01-16 16:35 | CP.PCM.CON ---
History of Present Illness - History of Present Illness History of Present Illness: 61 YR OLD MALE S/P CARDIOPULMONARY ARREST,ON MAXIMUM DOSE OF PRESSORS;INTUBATED AND BEING VENTILATED.HE IS REFERRED FOR PULMONARY FOLLOWUP AND VENTILATOR MANAGEMENT. HE IS DEEPLY COMATOSE AND HYPOTHERMIC. Past Patient History - Past Medical History & Family History Past Medical History?: Yes - Past Social History Smoking Status: Current Some Days Smoker - CARDIAC Hx Hypertension: Yes - MUSCULOSKELETAL/RHEUMATOLOGICAL Hx Falls: Yes - PSYCHIATRIC Hx Substance Use: No - ANESTHESIA Hx Anesthesia: No Hx Anesthesia Reactions: No Hx Malignant Hyperthermia: No Has any member of the family had a problem w/ anesthesia?: No Meds Allergies/Adverse Reactions: Allergies Allergy/AdvReac Type Severity Reaction Status Date / Time No Known Allergies Allergy Verified 04/28/14 10:46 - Medications Medications: Current Medications Acetaminophen (Tylenol 325mg Tab) 650 mg PO Q6H PRN PRN Reason: Fever >100.4 F Aspirin (Aspirin Chewable) 81 mg PO DAILY [facility] Last Admin: 01/15/17 18:47 Dose: 81 mg Atorvastatin Calcium (Lipitor) 40 mg PO DAILY [facility] Last Admin: 01/16/17 13:06 Dose: Not Given Clopidogrel Bisulfate (Plavix) 75 mg PO DAILY [facility] Last Admin: 01/16/17 13:05 Dose: Not Given Docusate Sodium (Colace) 100 mg PO BID PRN PRN Reason: Constipation Amiodarone HCl 900 mg/ (Dextrose) 518 mls @ 34.53 mls/hr IVPB .Q15H1M VIKY; 1 MG /MIN PRN Reason: Protocol Last Admin: 01/15/17 20:50 Dose: 34.53 mls/hr Heparin Sodium/Dextrose (Heparin 25,000 Units/250ml In D5w) 25,000 units in 250 mls @ 10 mls/hr IV .Q24H VIKY; Per Protocol PRN Reason: Protocol Last Admin: 01/15/17 18:59 Dose: 10 mls/hr Pantoprazole Sodium 40 mg/ (Sodium Chloride) 100 mls @ 20 mls/hr IVPB Q5H VIKY PRN Reason: 8 MG/HR Last Admin: 01/16/17 13:11 Dose: 20 mls/hr Norepinephrine Bitartrate 4 mg (/ Dextrose) 254 mls @ 9.52 mls/hr IV .Q24H VIKY ; 2.5 MCG/MIN PRN Reason: Protocol Last Titration: 01/16/17 12:45 Dose: 20 mcg/min, 76.2 mls/hr Dobutamine HCl/Dextrose (Dobutamine/Dextrose 5% 500mg/250ml) 500 mg in 250 mls @ 13.336 mls/hr IV .[id number] VIKY PRN Reason: 5 MCG/KG/MIN Last Admin: 01/16/17 11:44 Dose: 13.336 mls/hr Lactated Ringer's (Lactated Ringer's) 1,000 mls @ 100 mls/hr IV .Q10H VIKY Stop: 01/18/17 10:46 Last Admin: 01/16/17 11:50 Dose: 100 mls/hr Phenylephrine HCl 10 mg/ (Sodium Chloride) 251 mls @ 30.12 mls/hr IV .Q8H20M VIKY; 20 MCG/MIN PRN Reason: Protocol Last Titration: 01/16/17 14:07 Dose: 180 mcg/min, 271.08 mls/hr Phenylephrine HCl 40 mg/ (Sodium Chloride) 1,004 mls @ 30.12 mls/hr IV .Q24H VIKY; 20 MCG/MIN PRN Reason: Protocol Vasopressin 100 units/ Sodium (Chloride) 105 mls @ 1.89 mls/hr IV .Q24H VIKY PRN Reason: 0.03 UNITS/MIN Last Admin: 01/16/17 15:01 Dose: 1.89 mls/hr Norepinephrine Bitartrate 8 mg (/ Dextrose) 258 mls @ 38.7 mls/hr IV .Q6H40M ONE PRN Reason: 20 MCG/MIN Stop: 01/16/17 23:10 Metoprolol Tartrate (Lopressor) 6.25 mg PO Q12 VIKY Last Admin: 01/16/17 13:06 Dose: Not Given Physical Exam - Constitutional Appears: Toxic - Head Exam Head Exam: ATRAUMATIC, NORMAL INSPECTION, NORMOCEPHALIC - ENT Exam Additional comments: INTUBATED AND ON A RESPIRATOR - Neck Exam Neck exam: Positive for: Normal Inspection - Respiratory Exam Additional comments: ON A RESPIRATOR HAS RALES - Cardiovascular Exam Cardiovascular Exam: Tachycardia - GI/Abdominal Exam GI & Abdominal Exam: Normal Bowel Sounds, Soft. absent: Tenderness - Rectal Exam Rectal Exam: NORMAL INSPECTION - Extremities Exam Extremities exam: Positive for: pedal edema - Back Exam Back exam: NORMAL INSPECTION - Neurological Exam Neurological exam: Alert, CN II-XII Intact, Normal Gait, Oriented x3, Reflexes Normal - Psychiatric Exam Psychiatric exam: Normal Affect, Normal Mood - Skin Skin Exam: Dry, Intact, Normal Color, Warm Results - Vital Signs Recent Vital Signs: Last Vital Signs Temp 90.3 F L 01/16/17 12:00 Pulse 60 01/16/17 13:06 Resp 18 01/16/17 12:00 BP 90/42 L 01/16/17 15:01 Pulse Ox 100 01/16/17 12:00 - Labs Result Diagrams: 01/16/17 10:30 01/16/17 10:30 Labs: Laboratory Results - last 24 hr 01/15/17 01/15/17 01/15/17 18:04 18:28 20:30 WBC RBC Hgb Hct MCV MCH MCHC RDW Plt Count MPV Neut % (Auto) Lymph % (Auto) [place] % (Auto) Eos % (Auto) Baso % (Auto) Neut # Lymph # [place] # Eos # Baso # Neutrophils % (Manual) Band Neutrophils % Lymphocytes % (Manual) Monocytes % (Manual) Nucleated RBC % Platelet Estimate Large Platelets RBC Morphology PT INR APTT pCO2 pO2 HCO3 ABG pH ABG Total CO2 ABG O2 Saturation ABG O2 Content ABG Base Excess ABG Hemoglobin ABG Carboxyhemoglobin POC ABG HHb (Measured) ABG Methemoglobin ABG O2 Capacity Ru Test ABG Potassium VBG pH VBG pCO2 VBG HCO3 VBG Total CO2 VBG O2 Sat (Calc) VBG Base Excess VBG Potassium A-a O2 Difference Hgb O2 Saturation Glucose Lactate Vent Mode Mechanical Rate FiO2 Tidal Volume Crit Value Called To Crit Value Called By Crit Value Read Back Blood Gas Notified Time Sodium Potassium Chloride Carbon Dioxide Anion Gap BUN Creatinine Est GFR ( Amer) Est GFR (Non-Af Amer) POC Glucose (mg/dL) 259 H Random Glucose Lactic Acid Calcium Phosphorus Magnesium Total Bilirubin AST ALT Alkaline Phosphatase Ammonia Troponin I 39.2000 H* Total Protein Albumin Globulin Albumin/Globulin Ratio Triglycerides Cholesterol LDL Cholesterol Direct HDL Cholesterol TSH 3rd Generation Arterial Blood Potassium Venous Blood Potassium Urine Opiates Screen Negative Urine Methadone Screen Negative Ur Barbiturates Screen Negative Ur Phencyclidine Scrn Negative Ur Amphetamines Screen Negative U Benzodiazepines Scrn Negative U Oth Cocaine Metabols Negative U Cannabinoids Screen Negative 01/15/17 01/15/17 01/15/17 20:30 20:30 23:03 WBC 13.1 H RBC 4.72 Hgb 14.4 Hct 43.8 MCV 92.7 D MCH 30.6 MCHC 33.0 RDW 13.7 Plt Count 235 MPV Neut % (Auto) Lymph % (Auto) [place] % (Auto) Eos % (Auto) Baso % (Auto) Neut # Lymph # [place] # Eos # Baso # Neutrophils % (Manual) Band Neutrophils % Lymphocytes % (Manual) Monocytes % (Manual) Nucleated RBC % Platelet Estimate Large Platelets RBC Morphology PT INR APTT pCO2 pO2 HCO3 ABG pH ABG Total CO2 ABG O2 Saturation ABG O2 Content ABG Base Excess ABG Hemoglobin ABG Carboxyhemoglobin POC ABG HHb (Measured) ABG Methemoglobin ABG O2 Capacity Ru Test ABG Potassium VBG pH VBG pCO2 VBG HCO3 VBG Total CO2 VBG O2 Sat (Calc) VBG Base Excess VBG Potassium A-a O2 Difference Hgb O2 Saturation Glucose Lactate Vent Mode Mechanical Rate FiO2 Tidal Volume Crit Value Called To Crit Value Called By Crit Value Read Back Blood Gas Notified Time Sodium 147 Potassium 4.6 Chloride 116 H Carbon Dioxide 17 L Anion Gap 19 BUN 23 H Creatinine 2.1 H Est GFR ( Amer) 39 Est GFR (Non-Af Amer) 32 POC Glucose (mg/dL) Random Glucose 160 H Lactic Acid 3.3 H Calcium 8.1 L Phosphorus 8.5 H Magnesium 2.4 H Total Bilirubin 0.5 AST 717 H D ALT 627 H D Alkaline Phosphatase 170 H D Ammonia Troponin I Total Protein 7.2 Albumin 4.3 Globulin 2.9 Albumin/Globulin Ratio 1.5 Triglycerides Cholesterol LDL Cholesterol Direct HDL Cholesterol TSH 3rd Generation Arterial Blood Potassium Venous Blood Potassium Urine Opiates Screen Urine Methadone Screen Ur Barbiturates Screen Ur Phencyclidine Scrn Ur Amphetamines Screen U Benzodiazepines Scrn U Oth Cocaine Metabols U Cannabinoids Screen 01/15/17 01/15/17 01/16/17 23:32 23:39 01:18 WBC RBC Hgb Hct MCV MCH MCHC RDW Plt Count MPV Neut % (Auto) Lymph % (Auto) [place] % (Auto) Eos % (Auto) Baso % (Auto) Neut # Lymph # [place] # Eos # Baso # Neutrophils % (Manual) Band Neutrophils % Lymphocytes % (Manual) Monocytes % (Manual) Nucleated RBC % Platelet Estimate Large Platelets RBC Morphology PT 12.3 INR 1.1 APTT 107.6 H* D pCO2 45 pO2 92 HCO3 12.9 L ABG pH 7.10 L* ABG Total CO2 15.4 L ABG O2 Saturation 98.3 H ABG O2 Content ABG Base Excess -15.3 L ABG Hemoglobin ABG Carboxyhemoglobin POC ABG HHb (Measured) ABG Methemoglobin ABG O2 Capacity Ru Test Yes ABG Potassium 3.5 L VBG pH VBG pCO2 VBG HCO3 VBG Total CO2 VBG O2 Sat (Calc) VBG Base Excess VBG Potassium A-a O2 Difference 565.0 Hgb O2 Saturation Glucose 149 H Lactate 3.6 H Vent Mode A/c Mechanical Rate 14 FiO2 100.0 Tidal Volume 500 Crit Value Called To Tien marcus rn Crit Value Called By 6075 Crit Value Read Back Y Blood Gas Notified Time 2343 Sodium 144.0 Potassium Chloride 118.0 H Carbon Dioxide Anion Gap BUN Creatinine Est GFR ( Amer) Est GFR (Non-Af Amer) POC Glucose (mg/dL) 152 H Random Glucose Lactic Acid Calcium Phosphorus Magnesium Total Bilirubin AST ALT Alkaline Phosphatase Ammonia Troponin I Total Protein Albumin Globulin Albumin/Globulin Ratio Triglycerides Cholesterol LDL Cholesterol Direct HDL Cholesterol TSH 3rd Generation Arterial Blood Potassium 3.5 L Venous Blood Potassium Urine Opiates Screen Urine Methadone Screen Ur Barbiturates Screen Ur Phencyclidine Scrn Ur Amphetamines Screen U Benzodiazepines Scrn U Oth Cocaine Metabols U Cannabinoids Screen 01/16/17 01/16/17 01/16/17 01:18 01:18 01:28 WBC 20.8 H D RBC 5.03 Hgb 15.0 Hct 46.7 MCV 92.8 MCH 29.8 MCHC 32.2 L RDW 13.8 Plt Count 220 MPV Neut % (Auto) Lymph % (Auto) [place] % (Auto) Eos % (Auto) Baso % (Auto) Neut # Lymph # [place] # Eos # Baso # Neutrophils % (Manual) Band Neutrophils % Lymphocytes % (Manual) Monocytes % (Manual) Nucleated RBC % Platelet Estimate Large Platelets RBC Morphology PT INR APTT pCO2 pO2 HCO3 ABG pH ABG Total CO2 ABG O2 Saturation ABG O2 Content ABG Base Excess ABG Hemoglobin ABG Carboxyhemoglobin POC ABG HHb (Measured) ABG Methemoglobin ABG O2 Capacity Ru Test ABG Potassium VBG pH VBG pCO2 VBG HCO3 VBG Total CO2 VBG O2 Sat (Calc) VBG Base Excess VBG Potassium A-a O2 Difference Hgb O2 Saturation Glucose Lactate Vent Mode Mechanical Rate FiO2 Tidal Volume Crit Value Called To Crit Value Called By Crit Value Read Back Blood Gas Notified Time Sodium 149 H Potassium 3.1 L Chloride 115 H Carbon Dioxide 20 L Anion Gap 17 BUN 27 H Creatinine 2.4 H Est GFR ( Amer) 33 Est GFR (Non-Af Amer) 27 POC Glucose (mg/dL) 170 H Random Glucose 174 H Lactic Acid Calcium 7.9 L Phosphorus 4.6 H Magnesium 2.4 H Total Bilirubin 0.7 AST 1033 H ALT 593 H Alkaline Phosphatase 124 Ammonia Troponin I Total Protein 6.6 Albumin 3.8 Globulin 2.7 Albumin/Globulin Ratio 1.4 Triglycerides Cholesterol LDL Cholesterol Direct HDL Cholesterol TSH 3rd Generation Arterial Blood Potassium Venous Blood Potassium Urine Opiates Screen Urine Methadone Screen Ur Barbiturates Screen Ur Phencyclidine Scrn Ur Amphetamines Screen U Benzodiazepines Scrn U Oth Cocaine Metabols U Cannabinoids Screen 01/16/17 01/16/17 01/16/17 04:35 04:35 04:50 WBC 19.2 H RBC 4.94 Hgb 14.9 Hct 45.8 MCV 92.6 MCH 30.2 MCHC 32.6 L RDW 13.7 Plt Count 215 MPV 9.0 Neut % (Auto) 94.6 H Lymph % (Auto) 3.1 L [place] % (Auto) 2.1 Eos % (Auto) 0.1 Baso % (Auto) 0.1 Neut # 18.2 H Lymph # 0.6 L [place] # 0.4 Eos # 0.0 Baso # 0.0 Neutrophils % (Manual) 86 H Band Neutrophils % 1 Lymphocytes % (Manual) 7 L Monocytes % (Manual) 6 Nucleated RBC % 1 H Platelet Estimate Normal Large Platelets Present RBC Morphology Normal PT INR APTT pCO2 pO2 HCO3 ABG pH ABG Total CO2 ABG O2 Saturation ABG O2 Content ABG Base Excess ABG Hemoglobin ABG Carboxyhemoglobin POC ABG HHb (Measured) ABG Methemoglobin ABG O2 Capacity Ru Test ABG Potassium VBG pH VBG pCO2 VBG HCO3 VBG Total CO2 VBG O2 Sat (Calc) VBG Base Excess VBG Potassium A-a O2 Difference Hgb O2 Saturation Glucose Lactate Vent Mode Mechanical Rate FiO2 Tidal Volume Crit Value Called To Crit Value Called By Crit Value Read Back Blood Gas Notified Time Sodium 147 Potassium 3.6 Chloride 113 H Carbon Dioxide 22 Anion Gap 16 BUN 30 H Creatinine 2.6 H Est GFR ( Amer) 30 Est GFR (Non-Af Amer) 25 POC Glucose (mg/dL) 152 H Random Glucose 165 H Lactic Acid Calcium 7.8 L Phosphorus 5.5 H Magnesium 2.5 H Total Bilirubin 0.5 AST 1108 H ALT 580 H Alkaline Phosphatase 129 H Ammonia Troponin I 109.0000 H* Total Protein 6.6 Albumin 3.7 Globulin 2.9 Albumin/Globulin Ratio 1.3 Triglycerides 139 Cholesterol 183 LDL Cholesterol Direct 124 HDL Cholesterol 31 TSH 3rd Generation 3.19 Arterial Blood Potassium Venous Blood Potassium Urine Opiates Screen Urine Methadone Screen Ur Barbiturates Screen Ur Phencyclidine Scrn Ur Amphetamines Screen U Benzodiazepines Scrn U Oth Cocaine Metabols U Cannabinoids Screen 01/16/17 01/16/17 01/16/17 05:00 05:00 08:54 WBC RBC Hgb Hct MCV MCH MCHC RDW Plt Count MPV Neut % (Auto) Lymph % (Auto) [place] % (Auto) Eos % (Auto) Baso % (Auto) Neut # Lymph # [place] # Eos # Baso # Neutrophils % (Manual) Band Neutrophils % Lymphocytes % (Manual) Monocytes % (Manual) Nucleated RBC % Platelet Estimate Large Platelets RBC Morphology PT INR APTT 66.9 H D pCO2 76 H* pO2 103 H 29 L HCO3 15.2 L ABG pH 7.03 L* ABG Total CO2 22.4 ABG O2 Saturation 98.4 H ABG O2 Content 21.4 ABG Base Excess -12.4 L ABG Hemoglobin 15.9 ABG Carboxyhemoglobin 1.5 POC ABG HHb (Measured) 1.6 ABG Methemoglobin 1.6 ABG O2 Capacity 21.7 Ru Test Yes ABG Potassium VBG pH 7.00 L* VBG pCO2 97 H* VBG HCO3 15.6 VBG Total CO2 26.9 VBG O2 Sat (Calc) 53.9 VBG Base Excess -9.5 L VBG Potassium 3.5 L A-a O2 Difference 515.0 Hgb O2 Saturation 95.4 Glucose 212 H Lactate 3.7 H Vent Mode A/c Mechanical Rate 14 FiO2 100.0 100.0 Tidal Volume 500 Crit Value Called To Tien santos Crit Value Called By 6075 Ms Crit Value Read Back Y Y Blood Gas Notified Time 508 903 Sodium 140.0 Potassium Chloride 109.0 H Carbon Dioxide Anion Gap BUN Creatinine Est GFR ( Amer) Est GFR (Non-Af Amer) POC Glucose (mg/dL) Random Glucose Lactic Acid Calcium Phosphorus Magnesium Total Bilirubin AST ALT Alkaline Phosphatase Ammonia Troponin I Total Protein Albumin Globulin Albumin/Globulin Ratio Triglycerides Cholesterol LDL Cholesterol Direct HDL Cholesterol TSH 3rd Generation Arterial Blood Potassium Venous Blood Potassium 3.5 L Urine Opiates Screen Urine Methadone Screen Ur Barbiturates Screen Ur Phencyclidine Scrn Ur Amphetamines Screen U Benzodiazepines Scrn U Oth Cocaine Metabols U Cannabinoids Screen 01/16/17 01/16/17 01/16/17 09:02 10:30 10:30 WBC 17.1 H RBC 4.84 Hgb 14.8 Hct 44.0 MCV 91.1 MCH 30.7 MCHC 33.7 RDW 13.8 Plt Count 209 MPV Neut % (Auto) Lymph % (Auto) [place] % (Auto) Eos % (Auto) Baso % (Auto) Neut # Lymph # [place] # Eos # Baso # Neutrophils % (Manual) Band Neutrophils % Lymphocytes % (Manual) Monocytes % (Manual) Nucleated RBC % Platelet Estimate Large Platelets RBC Morphology PT 11.1 INR 1.0 APTT 35.4 D pCO2 49 H pO2 149 H HCO3 15.7 L ABG pH 7.15 L* ABG Total CO2 18.6 L ABG O2 Saturation 99.2 H ABG O2 Content 20.6 ABG Base Excess -11.8 L ABG Hemoglobin 15.0 ABG Carboxyhemoglobin 1.1 POC ABG HHb (Measured) 0.8 ABG Methemoglobin 1.6 ABG O2 Capacity 20.8 Ru Test Yes ABG Potassium VBG pH VBG pCO2 VBG HCO3 VBG Total CO2 VBG O2 Sat (Calc) VBG Base Excess VBG Potassium A-a O2 Difference 503.0 Hgb O2 Saturation 96.5 Glucose Lactate Vent Mode A/c Mechanical Rate 14 FiO2 100.0 Tidal Volume 500 Crit Value Called To Brendon santos Crit Value Called By 23 Crit Value Read Back Y Blood Gas Notified Time 906 Sodium Potassium Chloride Carbon Dioxide Anion Gap BUN Creatinine Est GFR ( Amer) Est GFR (Non-Af Amer) POC Glucose (mg/dL) Random Glucose Lactic Acid Calcium Phosphorus Magnesium Total Bilirubin AST ALT Alkaline Phosphatase Ammonia Troponin I Total Protein Albumin Globulin Albumin/Globulin Ratio Triglycerides Cholesterol LDL Cholesterol Direct HDL Cholesterol TSH 3rd Generation Arterial Blood Potassium Venous Blood Potassium Urine Opiates Screen Urine Methadone Screen Ur Barbiturates Screen Ur Phencyclidine Scrn Ur Amphetamines Screen U Benzodiazepines Scrn U Oth Cocaine Metabols U Cannabinoids Screen 01/16/17 01/16/17 01/16/17 10:30 10:30 10:30 WBC RBC Hgb Hct MCV MCH MCHC RDW Plt Count MPV Neut % (Auto) Lymph % (Auto) [place] % (Auto) Eos % (Auto) Baso % (Auto) Neut # Lymph # [place] # Eos # Baso # Neutrophils % (Manual) Band Neutrophils % Lymphocytes % (Manual) Monocytes % (Manual) Nucleated RBC % Platelet Estimate Large Platelets RBC Morphology PT INR APTT pCO2 pO2 HCO3 ABG pH ABG Total CO2 ABG O2 Saturation ABG O2 Content ABG Base Excess ABG Hemoglobin ABG Carboxyhemoglobin POC ABG HHb (Measured) ABG Methemoglobin ABG O2 Capacity Ru Test ABG Potassium VBG pH VBG pCO2 VBG HCO3 VBG Total CO2 VBG O2 Sat (Calc) VBG Base Excess VBG Potassium A-a O2 Difference Hgb O2 Saturation Glucose Lactate Vent Mode Mechanical Rate FiO2 Tidal Volume Crit Value Called To Crit Value Called By Crit Value Read Back Blood Gas Notified Time Sodium 147 Potassium 3.6 Chloride 112 H Carbon Dioxide 20 L Anion Gap 19 BUN 36 H Creatinine 2.8 H Est GFR ( Amer) 28 Est GFR (Non-Af Amer) 23 POC Glucose (mg/dL) Random Glucose 139 H Lactic Acid 3.4 H Calcium 7.6 L Phosphorus 6.3 H Magnesium 2.3 Total Bilirubin AST ALT Alkaline Phosphatase Ammonia 34 Troponin I 90.9000 H* Total Protein Albumin Globulin Albumin/Globulin Ratio Triglycerides Cholesterol LDL Cholesterol Direct HDL Cholesterol TSH 3rd Generation Arterial Blood Potassium Venous Blood Potassium Urine Opiates Screen Urine Methadone Screen Ur Barbiturates Screen Ur Phencyclidine Scrn Ur Amphetamines Screen U Benzodiazepines Scrn U Oth Cocaine Metabols U Cannabinoids Screen 01/16/17 01/16/17 01/16/17 10:40 14:20 14:26 WBC RBC Hgb Hct MCV MCH MCHC RDW Plt Count MPV Neut % (Auto) Lymph % (Auto) [place] % (Auto) Eos % (Auto) Baso % (Auto) Neut # Lymph # [place] # Eos # Baso # Neutrophils % (Manual) Band Neutrophils % Lymphocytes % (Manual) Monocytes % (Manual) Nucleated RBC % Platelet Estimate Large Platelets RBC Morphology PT INR APTT pCO2 pO2 38 HCO3 ABG pH ABG Total CO2 ABG O2 Saturation ABG O2 Content ABG Base Excess ABG Hemoglobin ABG Carboxyhemoglobin POC ABG HHb (Measured) ABG Methemoglobin ABG O2 Capacity Ru Test ABG Potassium VBG pH 6.95 L* VBG pCO2 99 H* VBG HCO3 13.7 VBG Total CO2 24.8 VBG O2 Sat (Calc) 76.7 H VBG Base Excess -12.3 L VBG Potassium 3.5 L A-a O2 Difference Hgb O2 Saturation Glucose 189 H Lactate 5.2 H* Vent Mode Mechanical Rate FiO2 100.0 Tidal Volume Crit Value Called To Brendon santos Crit Value Called By 23 Crit Value Read Back Y Blood Gas Notified Time 1430 Sodium 140.0 Potassium Chloride 111.0 H Carbon Dioxide Anion Gap BUN Creatinine Est GFR ( Amer) Est GFR (Non-Af Amer) POC Glucose (mg/dL) 122 H 171 H Random Glucose Lactic Acid Calcium Phosphorus Magnesium Total Bilirubin AST ALT Alkaline Phosphatase Ammonia Troponin I Total Protein Albumin Globulin Albumin/Globulin Ratio Triglycerides Cholesterol LDL Cholesterol Direct HDL Cholesterol TSH 3rd Generation Arterial Blood Potassium Venous Blood Potassium 3.5 L Urine Opiates Screen Urine Methadone Screen Ur Barbiturates Screen Ur Phencyclidine Scrn Ur Amphetamines Screen U Benzodiazepines Scrn U Oth Cocaine Metabols U Cannabinoids Screen Assessment & Plan - Assessment and Plan (Free Text) Assessment: S/P CARDIOPULMONARY ARREST ANOXIC ENCEPHALOPATHY CARDIOGENIC SHOCK Plan: CONTINUE VENTIOLATOR CARE PROGNOSIS IS EXTREMELY POOR WILL FOLLOW WITH YOU
[2017-01-16 17:12] LABS: ALB/GLOB RATIO 1.3 (1.0-2.1); ALBUMIN 3.1 g/dL (3.5-5.0); CALCIUM 6.8 mg/dL (8.4-10.2); HEMOGLOBIN 13.2 g/dL (12.0-18.0); MAGNESIUM 1.9 MG/DL (1.6-2.3); MEAN CELL VOLUME 92.2 fl (80.0-94.0); MEAN CORPUSCULAR HEMOGLOBIN 30.3 pg (27.0-31.0); MEAN CORPUSCULAR HGB CONC 32.8 g/dL (33.0-37.0); RBC 4.36 Mil/uL (4.40-5.90); RED CELL DISTRIBUTION WIDTH 13.5 % (11.5-14.5); WHITE BLOOD COUNT 10.6 K/uL (4.8-10.8)
[2017-01-17] MEDS: Pantoprazole 40 MG in Sodium Chloride 0.9% 100 ML IVPB SCH ×2 (00:06→05:36)
[2017-01-17] MEDS ORDERED: Dextrose 50% SYRINGE Inj (50 ml) IVP ONE (02:07)
[2017-01-17] MEDS ORDERED: Dextrose 50% SYRINGE Inj (50 ml) ONE (02:12)
[2017-01-17 04:54] LABS: ABG ALLEN TEST YES; ARTERIAL BLOOD GAS HCO3 13.9 mmol/L (21-28); ARTERIAL BLOOD GAS HEMOGLOBIN 11.7 g/dL (11.7-17.4); ARTERIAL BLOOD GAS O2 CONTENT 14.5 ML/dL (15-23); ARTERIAL BLOOD GAS O2 SAT 90.7 % (95-98); ARTERIAL BLOOD GAS PCO2 97 mm/Hg (35-45); ARTERIAL BLOOD GAS PH 6.92 (7.35-7.45); ARTERIAL BLOOD GAS PO2 57 mm/Hg (80-100); ARTERIAL BLOOD GAS TCO2 22.9 mmol/L (22-28)
[2017-01-17] MEDS: DOBUTamine 500mg/250ml D5W 500 MG/250 ML BAG IV SCH (05:18)
[2017-01-17 05:21] LABS: BASO % 0.1 % (0.0-2.0); EOS % 0.7 % (0.0-4.0); HEMOGLOBIN 11.8 g/dL (12.0-18.0); LYMPH # 0.7 K/uL (1.0-4.3); LYMPH % 13.7 % (20.0-40.0); MEAN CELL VOLUME 93.3 fl (80.0-94.0); MEAN CORPUSCULAR HEMOGLOBIN 30.1 pg (27.0-31.0); MEAN CORPUSCULAR HGB CONC 32.2 g/dL (33.0-37.0); MEAN PLATELET VOLUME 9.9 fl (7.2-11.7); MONO # 0.3 K/uL (0.0-0.8); MONO % 4.9 % (0.0-10.0); NEUT # 4.4 K/uL (1.8-7.0); NEUT % 80.6 % (50.0-75.0); NRBC % 0.1 % (0.0-0.0); RBC 3.94 Mil/uL (4.40-5.90); RED CELL DISTRIBUTION WIDTH 14.3 % (11.5-14.5); WHITE BLOOD COUNT 5.4 K/uL (4.8-10.8)
[2017-01-17 05:24] LABS: ALB/GLOB RATIO 1.1 (1.0-2.1); ALBUMIN 2.4 g/dL (3.5-5.0)
[2017-01-17 05:42] LABS: CALCIUM 5.5 mg/dL (8.4-10.2)
[2017-01-17 05:44] VITALS: RESP 22
[2017-01-17] MEDS ORDERED: Sod Polystyrene Sulf 15 gm/60 ml Oral Susp NG ONE (06:13)
[2017-01-17] MEDS ORDERED: EPINEPHrine 1 mg/ml (1:1000) Inj IV ONE (07:00)
[2017-01-17] MEDS ORDERED: Calcium Gluconate 4.65 mEq/10 ml Inj IV ONE (07:44)
[2017-01-17 08:13] VITALS: TEMP 97.3
[2017-01-17] MEDS: SODIUM CHLORIDE 0.9% IV SCH (08:30)
[2017-01-17] MEDS: PHENYLEPHRINE IV SCH (08:30)
[2017-01-17] MEDS: Lactated Ringer's 1,000 ML IV SCH (08:52)
[2017-01-17 09:26] LABS: ABG ALLEN TEST YES; ARTERIAL BLOOD GAS HCO3 9.6 mmol/L (21-28); ARTERIAL BLOOD GAS O2 CAPACITY 15.1 mL/dL (16-24); ARTERIAL BLOOD GAS O2 CONTENT 13.3 ML/dL (15-23); ARTERIAL BLOOD GAS O2 SAT 88.2 % (95-98); ARTERIAL BLOOD GAS PCO2 67 mm/Hg (35-45); ARTERIAL BLOOD GAS PH 6.91 (7.35-7.45); ARTERIAL BLOOD GAS PO2 51 mm/Hg (80-100); ARTERIAL BLOOD GAS TCO2 15.5 mmol/L (22-28)
--- NOTE | 2017-01-17 09:26 | CP.PCM.PN ---
Objective - Vital Signs/Intake and Output Vital Signs (last 24 hours): Temp Pulse Resp BP Pulse Ox 97.3 F L 51 L 22 45/24 L 98 01/17/17 08:00 01/17/17 08:00 01/17/17 08:00 01/17/17 08:00 01/17/17 05:00 Intake and Output: 01/17/17 01/17/17 06:59 18:59 Intake Total 9933 1121 Output Total 84 150 Balance 9849 971 - Medications Medications: Current Medications Acetaminophen (Tylenol 650 Mg Supp) 650 mg MD Q4 PRN PRN Reason: Fever >100.4 F Last Admin: 01/16/17 23:32 Dose: 650 mg Aspirin (Aspirin Chewable) 81 mg PO DAILY [facility] Last Admin: 01/15/17 18:47 Dose: 81 mg Atorvastatin Calcium (Lipitor) 40 mg PO DAILY [facility] Last Admin: 01/16/17 13:06 Dose: Not Given Clopidogrel Bisulfate (Plavix) 75 mg PO DAILY [facility] Last Admin: 01/16/17 13:05 Dose: Not Given Docusate Sodium (Colace) 100 mg PO BID PRN PRN Reason: Constipation Amiodarone HCl 900 mg/ (Dextrose) 518 mls @ 34.53 mls/hr IVPB .Q15H1M VIKY; 1 MG /MIN PRN Reason: Protocol Last Admin: 01/15/17 20:50 Dose: 34.53 mls/hr Heparin Sodium/Dextrose (Heparin 25,000 Units/250ml In D5w) 25,000 units in 250 mls @ 10 mls/hr IV .Q24H VIKY; Per Protocol PRN Reason: Protocol Last Admin: 01/15/17 18:59 Dose: 10 mls/hr Pantoprazole Sodium 40 mg/ (Sodium Chloride) 100 mls @ 20 mls/hr IVPB Q5H VIKY PRN Reason: 8 MG/HR Last Admin: 01/17/17 05:36 Dose: 20 mls/hr Dobutamine HCl/Dextrose (Dobutamine/Dextrose 5% 500mg/250ml) 500 mg in 250 mls @ 13.336 mls/hr IV .[id number] VIKY PRN Reason: 5 MCG/KG/MIN Last Admin: 01/17/17 05:18 Dose: 13.336 mls/hr Lactated Ringer's (Lactated Ringer's) 1,000 mls @ 100 mls/hr IV .Q10H VIKY Stop: 01/18/17 10:46 Last Admin: 01/17/17 08:52 Dose: 100 mls/hr Phenylephrine HCl 40 mg/ (Sodium Chloride) 1,004 mls @ 30.12 mls/hr IV .Q24H VIKY; 20 MCG/MIN PRN Reason: Protocol Last Titration: 01/17/17 05:54 Dose: 180 mcg/min, 271.08 mls/hr Vasopressin 100 units/ Sodium (Chloride) 105 mls @ 1.89 mls/hr IV .Q24H VIKY PRN Reason: 0.03 UNITS/MIN Last Admin: 01/16/17 15:01 Dose: 1.89 mls/hr Norepinephrine Bitartrate 8 mg (/ Dextrose) 258 mls @ 38.7 mls/hr IV .Q6H40M ONE; 20 MCG/MIN PRN Reason: Protocol Stop: 01/17/17 09:56 Last Admin: 01/17/17 08:26 Dose: 30 mcg/min, 58.05 mls/hr Calcium Gluconate 4.6 meq/ (Sodium Chloride) 109.8924 mls @ 109.892 mls/hr IV ONCE ONE Stop: 01/17/17 10:59 Metoprolol Tartrate (Lopressor) 6.25 mg PO Q12 VIKY Last Admin: 01/16/17 21:13 Dose: Not Given - Labs Labs: 01/17/17 04:20 01/17/17 04:20 PT 11.1 Seconds (9.8-13.1) 01/16/17 10:30 INR 1.0 (0.9-1.2) 01/16/17 10:30 APTT 29.3 Seconds (25.6-37.1) D 01/16/17 16:57 Assessment and Plan (1) Cardiac arrest Status: Acute (2) Respiratory failure with hypoxia Status: Acute (3) Metabolic acidosis Status: Acute (4) NSTEMI (non-ST elevated myocardial infarction) Status: Acute (5) Anoxic encephalopathy Status: Acute (6) Shock liver Status: Acute (7) Acute renal failure Status: Acute
--- NOTE | 2017-01-17 09:44 | CP.PCM.PN ---
Subjective - Date & Time of Evaluation Date of Evaluation: 01/17/17 Time of Evaluation: 09:44 - Subjective Subjective: STILL INTUBATED AND BEING VENTILATED HYPOTENSIVE AND COMATOSE CPR IN PROGRESS PROGNOSIS IS POOR Objective - Vital Signs/Intake and Output Vital Signs (last 24 hours): Temp Pulse Resp BP Pulse Ox 97.3 F L 51 L 22 45/24 L 98 01/17/17 08:00 01/17/17 08:00 01/17/17 08:00 01/17/17 08:00 01/17/17 05:00 Intake and Output: 01/17/17 01/17/17 06:59 18:59 Intake Total 9933 1121 Output Total 84 150 Balance 9849 971 - Medications Medications: Current Medications Acetaminophen (Tylenol 650 Mg Supp) 650 mg ND Q4 PRN PRN Reason: Fever >100.4 F Last Admin: 01/16/17 23:32 Dose: 650 mg Aspirin (Aspirin Chewable) 81 mg PO DAILY [facility] Last Admin: 01/15/17 18:47 Dose: 81 mg Atorvastatin Calcium (Lipitor) 40 mg PO DAILY [facility] Last Admin: 01/16/17 13:06 Dose: Not Given Clopidogrel Bisulfate (Plavix) 75 mg PO DAILY [facility] Last Admin: 01/16/17 13:05 Dose: Not Given Docusate Sodium (Colace) 100 mg PO BID PRN PRN Reason: Constipation Amiodarone HCl 900 mg/ (Dextrose) 518 mls @ 34.53 mls/hr IVPB .Q15H1M VIKY; 1 MG /MIN PRN Reason: Protocol Last Admin: 01/15/17 20:50 Dose: 34.53 mls/hr Heparin Sodium/Dextrose (Heparin 25,000 Units/250ml In D5w) 25,000 units in 250 mls @ 10 mls/hr IV .Q24H VIKY; Per Protocol PRN Reason: Protocol Last Admin: 01/15/17 18:59 Dose: 10 mls/hr Pantoprazole Sodium 40 mg/ (Sodium Chloride) 100 mls @ 20 mls/hr IVPB Q5H VIKY PRN Reason: 8 MG/HR Last Admin: 01/17/17 05:36 Dose: 20 mls/hr Dobutamine HCl/Dextrose (Dobutamine/Dextrose 5% 500mg/250ml) 500 mg in 250 mls @ 13.336 mls/hr IV .[id number] VIKY PRN Reason: 5 MCG/KG/MIN Last Admin: 01/17/17 05:18 Dose: 13.336 mls/hr Lactated Ringer's (Lactated Ringer's) 1,000 mls @ 100 mls/hr IV .Q10H VIKY Stop: 01/18/17 10:46 Last Admin: 01/17/17 08:52 Dose: 100 mls/hr Phenylephrine HCl 40 mg/ (Sodium Chloride) 1,004 mls @ 30.12 mls/hr IV .Q24H VIKY; 20 MCG/MIN PRN Reason: Protocol Last Titration: 01/17/17 05:54 Dose: 180 mcg/min, 271.08 mls/hr Vasopressin 100 units/ Sodium (Chloride) 105 mls @ 1.89 mls/hr IV .Q24H VIKY PRN Reason: 0.03 UNITS/MIN Last Admin: 01/16/17 15:01 Dose: 1.89 mls/hr Norepinephrine Bitartrate 8 mg (/ Dextrose) 258 mls @ 38.7 mls/hr IV .Q6H40M ONE; 20 MCG/MIN PRN Reason: Protocol Stop: 01/17/17 09:56 Last Admin: 01/17/17 08:26 Dose: 30 mcg/min, 58.05 mls/hr Calcium Gluconate 4.6 meq/ (Sodium Chloride) 109.8924 mls @ 109.892 mls/hr IV ONCE ONE Stop: 01/17/17 10:59 Metoprolol Tartrate (Lopressor) 6.25 mg PO Q12 VIKY Last Admin: 01/16/17 21:13 Dose: Not Given - Labs Labs: 01/17/17 04:20 01/17/17 04:20 PT 11.1 Seconds (9.8-13.1) 01/16/17 10:30 INR 1.0 (0.9-1.2) 01/16/17 10:30 APTT 29.3 Seconds (25.6-37.1) D 01/16/17 16:57
[2017-01-17] MEDS ORDERED: Calcium Gluconate 4.6 MEQ in Sodium Chloride 0.9% 100 ML IV ONE (10:00)
--- NOTE | 2017-01-17 10:29 | CP.PCM.PN ---
<Nelda Echavarria - Last Filed: 01/17/17 11:52> Subjective - Date & Time of Evaluation Date of Evaluation: 01/17/17 Time of Evaluation: 11:10 - Subjective Subjective: CODE BLUE NOTE: 61 yo m W/ no known significant PMH was brought into the hospital after being in cardiac arrest. Patient was given for rounds of shock, 4 epi, 1 ca gluconate and amiodarone and was intubated in the field and resuscitated. - In the ER the patient alternated between PEA and VFIB and ACLS protocol was followed, and patient was resuscitated. -1st code blue Today at 8:30 AM patient was found to be hypotensive and multiple pressors. Patient was found to have PEA. Code Farhan was called. - 3 epinephirines were given, 1 atropine, chest compressions were preformed. Junctional rhythum was found at bedside. PAtient was placed back on the vent. - 2nd code blue: Was called at 9:24 am, CPR was started at 9:24. Patient was found to have PEA. ACLS protocol was followed patient was given chest compressions and 2 rounds of epinephrine. Patient was revived and found to have Accelerated junction rhythm @ 9:31 am. - 3rd Code Blue: Was called at 10:03 am, CPR was started at 10:03, ACLS protocol was found, 2 rounds of epinephrine were given. Pulse was restored at 10:11 am. - 4th Code Blue: Was called at 10:31 am Asystole was noted on monitor and no pulse was felt. ACLS protocol was sstarted. 2 rounds of epinephrine was given, Pulse was restored at 10:40 am w/ junctional rhythm. -5th code Blue: Was Called at 10:50 am, patient was found to have severe bradycardia w/ no pulse. ACLS protocol was followed. 3 rounds of epinephrine was given. At 11:10 time of was called w/ engineer third assistant and hospitalist at beside. Dr. Johnathon Lisa and Dr. Johnathon Das were present at the bedside throughout the entire codes. Objective - Vital Signs/Intake and Output Vital Signs (last 24 hours): Temp Pulse Resp BP Pulse Ox 97.3 F L 51 L 22 45/24 L 98 01/17/17 08:00 01/17/17 08:00 01/17/17 08:00 01/17/17 08:00 01/17/17 05:00 Intake and Output: 01/17/17 01/17/17 06:59 18:59 Intake Total 9933 1121 Output Total 84 150 Balance 9849 971 - Medications Medications: Current Medications Acetaminophen (Tylenol 650 Mg Supp) 650 mg [place] Q4 PRN PRN Reason: Fever >100.4 F Last Admin: 01/16/17 23:32 Dose: 650 mg Aspirin (Aspirin Chewable) 81 mg PO DAILY [facility] Last Admin: 01/15/17 18:47 Dose: 81 mg Atorvastatin Calcium (Lipitor) 40 mg PO DAILY [facility] Last Admin: 01/16/17 13:06 Dose: Not Given Clopidogrel Bisulfate (Plavix) 75 mg PO DAILY [facility] Last Admin: 01/16/17 13:05 Dose: Not Given Docusate Sodium (Colace) 100 mg PO BID PRN PRN Reason: Constipation Amiodarone HCl 900 mg/ (Dextrose) 518 mls @ 34.53 mls/hr IVPB .Q15H1M VIKY; 1 MG /MIN PRN Reason: Protocol Last Admin: 01/15/17 20:50 Dose: 34.53 mls/hr Heparin Sodium/Dextrose (Heparin 25,000 Units/250ml In D5w) 25,000 units in 250 mls @ 10 mls/hr IV .Q24H VIKY; Per Protocol PRN Reason: Protocol Last Admin: 01/15/17 18:59 Dose: 10 mls/hr Pantoprazole Sodium 40 mg/ (Sodium Chloride) 100 mls @ 20 mls/hr IVPB Q5H VIKY PRN Reason: 8 MG/HR Last Admin: 01/17/17 05:36 Dose: 20 mls/hr Dobutamine HCl/Dextrose (Dobutamine/Dextrose 5% 500mg/250ml) 500 mg in 250 mls @ 13.336 mls/hr IV .[id number] VIKY PRN Reason: 5 MCG/KG/MIN Last Admin: 01/17/17 05:18 Dose: 13.336 mls/hr Lactated Ringer's (Lactated Ringer's) 1,000 mls @ 100 mls/hr IV .Q10H VIKY Stop: 01/18/17 10:46 Last Admin: 01/17/17 08:52 Dose: 100 mls/hr Phenylephrine HCl 40 mg/ (Sodium Chloride) 1,004 mls @ 30.12 mls/hr IV .Q24H VIKY; 20 MCG/MIN PRN Reason: Protocol Last Titration: 01/17/17 05:54 Dose: 180 mcg/min, 271.08 mls/hr Vasopressin 100 units/ Sodium (Chloride) 105 mls @ 1.89 mls/hr IV .Q24H VIKY PRN Reason: 0.03 UNITS/MIN Last Admin: 01/16/17 15:01 Dose: 1.89 mls/hr Calcium Gluconate 4.6 meq/ (Sodium Chloride) 109.8924 mls @ 109.892 mls/hr IV ONCE ONE Stop: 01/17/17 10:59 Last Admin: 01/17/17 10:10 Dose: 109.892 mls/hr Metoprolol Tartrate (Lopressor) 6.25 mg PO Q12 VIKY Last Admin: 01/16/17 21:13 Dose: Not Given - Labs Labs: 01/17/17 04:20 01/17/17 04:20 PT 11.1 Seconds (9.8-13.1) 01/16/17 10:30 INR 1.0 (0.9-1.2) 01/16/17 10:30 APTT 29.3 Seconds (25.6-37.1) D 01/16/17 16:57 - Constitutional Appears: Chronically Ill - Head Exam Additional comments: intubated - Eye Exam Eye Exam: absent: EOMI Pupil Exam: Fixed. absent: PERRL - Cardiovascular Exam Additional comments: Absent Carotid and Peripheral Pulses - Neurological Exam Neurological Exam: absent: Alert, Awake, CN II-XII Intact, Oriented x3, Reflexes Normal Additional comments: No response to verbal or peripheral stimuli. No corneal reflex. Absence of vital signs Assessment and Plan - Assessment and Plan (Free Text) Assessment: - Patient was pronounced at 11:10 am. Family was notified. Dr. Lisa and Dr Das were both at bedside. <Raymond Das V - Last Filed: 01/17/17 12:21> Subjective - Subjective Subjective: patient is seen, examined at bedside. Events since admission reviewed. Case was discussed in detail in am rounds. Agree with note by resident as documented in his note Objective - Vital Signs/Intake and Output Vital Signs (last 24 hours): Temp Pulse Resp BP Pulse Ox 97.3 F L 48 L 22 L 90 L 01/17/17 08:00 01/17/17 10:00 01/17/17 10:00 01/17/17 10:00 01/17/17 10:00 Intake and Output: 01/17/17 01/17/17 06:59 18:59 Intake Total 9933 2704 Output Total 84 150 Balance 9849 2554 - Labs Labs: 01/17/17 04:20 01/17/17 04:20 PT 11.1 Seconds (9.8-13.1) 01/16/17 10:30 INR 1.0 (0.9-1.2) 01/16/17 10:30 APTT 29.3 Seconds (25.6-37.1) D 01/16/17 16:57
[2017-01-17 10:58] VITALS: BP 29/16; PULSE 48; O2SAT 90
--- NOTE | 2017-01-17 11:21 | CP.PCM.PRO ---
Pronouncement of Note - Clinical Findings Physical Exam: No Response Verbal/Painful Stimuli, Absent Peripheral Pulses{ Carotid & Femoral}, Absent Heart & Breath Sounds, No Pupillary Light Reflex, No Corneal Reflex, Pupils Fixed & Dilated, Absence of Vital Signs - Pronouncement Time Time of Pronouncement of : 11:10 - Notifications Pronouncement Notifications: Family Notified Faucets Assembler Notified: No - Autopsy Autopsy Requested: No - [place]: [id number] Additional Comments: despite resuscitative measures
--- NOTE | 2017-01-17 11:49 | CP.PCM.DIS ---
Provider - Provider Date of Admission: 01/15/17 17:50 Attending physician: Dahiana Jeffers DO Consults: Cardio: Dr Carrillo Pulm: Dr Silva nephrology": Dr Forde Time Spent in preparation of Discharge (in minutes): 60 Diagnosis - Discharge Diagnosis (1) Cardiac arrest Status: Acute (2) Respiratory failure with hypoxia Status: Acute (3) Metabolic acidosis Status: Acute (4) NSTEMI (non-ST elevated myocardial infarction) Status: Acute (5) Anoxic encephalopathy Status: Acute (6) Shock liver Status: Acute (7) Acute renal failure Status: Acute Hospital Course - Lab Results Lab Results: Most Recent Lab Values WBC 5.4 K/uL (4.8-10.8) 01/17/17 04:20 RBC 3.94 Mil/uL (4.40-5.90) L 01/17/17 04:20 Hgb 11.8 g/dL (12.0-18.0) L 01/17/17 04:20 Hct 36.7 % (35.0-51.0) 01/17/17 04:20 MCV 93.3 fl (80.0-94.0) 01/17/17 04:20 MCH 30.1 pg (27.0-31.0) 01/17/17 04:20 MCHC 32.2 g/dL (33.0-37.0) L 01/17/17 04:20 RDW 14.3 % (11.5-14.5) 01/17/17 04:20 Plt Count 123 K/uL (130-400) L D 01/17/17 04:20 MPV 9.9 fl (7.2-11.7) 01/17/17 04:20 Neut % (Auto) 80.6 % (50.0-75.0) H 01/17/17 04:20 Lymph % (Auto) 13.7 % (20.0-40.0) L 01/17/17 04:20 [place] % (Auto) 4.9 % (0.0-10.0) 01/17/17 04:20 Eos % (Auto) 0.7 % (0.0-4.0) 01/17/17 04:20 Baso % (Auto) 0.1 % (0.0-2.0) 01/17/17 04:20 Neut # 4.4 K/uL (1.8-7.0) 01/17/17 04:20 Lymph # 0.7 K/uL (1.0-4.3) L 01/17/17 04:20 [place] # 0.3 K/uL (0.0-0.8) 01/17/17 04:20 Eos # 0.0 K/uL (0.0-0.7) 01/17/17 04:20 Baso # 0.0 K/uL (0.0-0.2) 01/17/17 04:20 Neutrophils % (Manual) 86 % (42-75) H 01/16/17 04:35 Band Neutrophils % 1 % (0-2) 01/16/17 04:35 Lymphocytes % (Manual) 7 % (20-50) L 01/16/17 04:35 Reactive Lymphs % 6 % (0-0) H 01/15/17 16:35 Monocytes % (Manual) 6 % (0-10) 01/16/17 04:35 Eosinophils % (Manual) 1 % (0-7) 01/15/17 16:35 Nucleated RBC % 1 % (0-0) H 01/16/17 04:35 Platelet Estimate Normal (NORMAL) 01/16/17 04:35 Large Platelets Present 01/16/17 04:35 RBC Morphology Normal (NORMAL) 01/16/17 04:35 PT 11.1 Seconds (9.8-13.1) 01/16/17 10:30 INR 1.0 (0.9-1.2) 01/16/17 10:30 APTT 29.3 Seconds (25.6-37.1) D 01/16/17 16:57 pCO2 67 mm/Hg (35-45) H 01/17/17 08:20 pO2 51 mm/Hg (80-100) L 01/17/17 08:20 HCO3 9.6 mmol/L (21-28) L* 01/17/17 08:20 ABG pH 6.91 (7.35-7.45) L* 01/17/17 08:20 ABG Total CO2 15.5 mmol/L (22-28) L 01/17/17 08:20 ABG O2 Saturation 88.2 % (95-98) L 01/17/17 08:20 ABG O2 Content 13.3 ML/dL (15-23) L 01/17/17 08:20 ABG Base Excess -19.4 mmol/L (-2.0-3.0) L 01/17/17 08:20 ABG Hemoglobin 11.0 g/dL (11.7-17.4) L 01/17/17 08:20 ABG Carboxyhemoglobin 1.2 % (0.5-1.5) 01/17/17 08:20 POC ABG HHb (Measured) 11.5 % (0.0-5.0) H 01/17/17 08:20 ABG Methemoglobin 1.6 % (0.0-3.0) 01/17/17 08:20 ABG O2 Capacity 15.1 mL/dL (16-24) L 01/17/17 08:20 Ru Test Yes 01/17/17 08:20 ABG Potassium 3.5 mmol/L (3.6-5.2) L 01/15/17 23:39 VBG pH 6.95 (7.32-7.43) L* 01/16/17 14:20 VBG pCO2 99 mmHg (40-60) H* 01/16/17 14:20 VBG HCO3 13.7 mmol/L 01/16/17 14:20 VBG Total CO2 24.8 mmol/L (22-28) 01/16/17 14:20 VBG O2 Sat (Calc) 76.7 % (40-65) H 01/16/17 14:20 VBG Base Excess -12.3 mmol/L (0.0-2.0) L 01/16/17 14:20 VBG Potassium 3.5 mmol/L (3.6-5.2) L 01/16/17 14:20 A-a O2 Difference 578.0 mm/Hg 01/17/17 08:20 Hgb O2 Saturation 85.7 % (95.0-98.0) L 01/17/17 08:20 Sodium 140.0 mmol/L (132-148) 01/16/17 14:20 Chloride 111.0 mmol/L (98-107) H 01/16/17 14:20 Glucose 189 mg/dL (75-110) H 01/16/17 14:20 Lactate 5.2 mmol/L (0.7-2.1) H* 01/16/17 14:20 Vent Mode A/c 01/17/17 08:20 Mechanical Rate 22 01/17/17 08:20 FiO2 100.0 % 01/17/17 08:20 Tidal Volume 550 01/17/17 08:20 PEEP 0 01/17/17 04:53 Crit Value Called To Brendon santos 01/17/17 08:20 Crit Value Called By 23 01/17/17 08:20 Crit Value Read Back Y 01/17/17 08:20 Blood Gas Notified Time 925 01/17/17 08:20 Sodium 140 mmol/l (132-148) 01/17/17 04:20 Potassium 6.3 MMOL/L (3.6-5.0) H* D 01/17/17 04:20 Chloride 111 mmol/L (98-107) H 01/17/17 04:20 Carbon Dioxide 19 mmol/L (22-30) L 01/17/17 04:20 Anion Gap 16 (10-20) 01/17/17 04:20 BUN 47 mg/dl (9-20) H 01/17/17 04:20 Creatinine 4.3 mg/dL (0.8-1.5) H 01/17/17 04:20 Est GFR ( Amer) 17 01/17/17 04:20 Est GFR (Non-Af Amer) 14 01/17/17 04:20 POC Glucose (mg/dL) 143 mg/dL (65-110) H 01/17/17 10:16 Random Glucose 130 mg/dL (75-110) H 01/17/17 04:20 Lactic Acid 3.2 MMOL/L (0.7-2.1) H 01/17/17 04:20 Calcium 5.5 mg/dL (8.4-10.2) L* 01/17/17 04:20 Phosphorus 8.0 mg/dl (2.5-4.5) H 01/16/17 16:57 Magnesium 1.9 MG/DL (1.6-2.3) 01/16/17 16:57 Total Bilirubin 0.3 mg/dl (0.2-1.3) 01/17/17 04:20 AST 615 U/L (17-59) H D 01/17/17 04:20 ALT 343 U/L (21-72) H D 01/17/17 04:20 Alkaline Phosphatase 53 U/L (38-126) 01/17/17 04:20 Ammonia 34 umo/L (16-60) 01/16/17 10:30 Troponin I 51.9000 ng/mL (0.00-0.120) H* 01/16/17 23:29 Total Protein 4.6 G/DL (6.3-8.2) L 01/17/17 04:20 Albumin 2.4 g/dL (3.5-5.0) L D 01/17/17 04:20 Globulin 2.1 gm/dL (2.2-3.9) L 01/17/17 04:20 Albumin/Globulin Ratio 1.1 (1.0-2.1) 01/17/17 04:20 Triglycerides 139 mg/DL (0-149) 01/16/17 04:35 Cholesterol 183 mg/dL (0-199) 01/16/17 04:35 LDL Cholesterol Direct 124 mg/dL (0-129) 01/16/17 04:35 HDL Cholesterol 31 MG/DL (30-70) 01/16/17 04:35 TSH 3rd Generation 3.19 mIU/ML (0.46-4.68) 01/16/17 04:35 Arterial Blood Potassium 3.5 mmol/L (3.6-5.2) L 01/15/17 23:39 Venous Blood Potassium 3.5 mmol/L (3.6-5.2) L 01/16/17 14:20 Urine Opiates Screen Negative (NEGATIVE) 01/15/17 18:04 Urine Methadone Screen Negative (NEGATIVE) 01/15/17 18:04 Ur Barbiturates Screen Negative (NEGATIVE) 01/15/17 18:04 Ur Phencyclidine Scrn Negative (NEGATIVE) 01/15/17 18:04 Ur Amphetamines Screen Negative (NEGATIVE) 01/15/17 18:04 U Benzodiazepines Scrn Negative (NEGATIVE) 01/15/17 18:04 U Oth Cocaine Metabols Negative (NEGATIVE) 01/15/17 18:04 U Cannabinoids Screen Negative (NEGATIVE) 01/15/17 18:04 Alcohol, Quantitative < 10 mg/dl (0-10) 01/15/17 16:35 Blood Type AB POSITIVE 01/15/17 16:56 Blood Type Confirm AB POSITIVE 01/15/17 17:06 Antibody Screen Negative 01/15/17 16:56 BBK History Checked No verified bt 01/15/17 16:56 - Hospital Course Hospital Course: 61 year old male with no known past medical history was brought in by EMS after being found collapsed on sidewalk. Patient was unresponsive for approximately 20 minutes, was found to be in AFIB and was shocked 4 times. He was also given 4 Epi, 1 sodium bicarb, 1 ca gluconate, and Amiodarone bolus 300 mg. He was intubated in the field, and had IO placed for access. In the ER pt was found to be PEA, and alternated between PEA and VFIB while ACLS protocol was followed. Central line placed, code heart contacted, no activation. CT head edema consistent wtih hypoxia. He was admitted to ICU - placed on 4 pressors. Pt remained unresponsive and had poor prognosis. On 01/17 , pt had multiple Cardiorespiratory arrest ( Code Blue) x 5 times and despite resuscitative measure, pt at 11:10 am. (1) Cardiac arrest Status: Acute Pt had cardiac arrest in the field- CPR done and was intubated in the field Pt was placed on 4 pressors in the ICU - Norepinephrine, Phenylephrine, Dobutamine and Vasopressine Remained unresponsive, intubated on Mech Vent Hypothermia protocol started Cardio consulted- Dr Gerardo Dodd Blue called x 5 - CPR done Pt on 01/17 at 11:10 am ( spouse was present in the ICU) (2) Respiratory failure with hypoxia Status: Acute Pt intubated , on mech Vent Pulm consult - Dr Silva (3) Metabolic acidosis/Lactic acidosis sec to above Status: Acute on Sodium Bicarb drip (4) NSTEMI (non-ST elevated myocardial infarction) Status: Acute Troponin elevated to 109 Cardio consulted on Heparin drip (5) Anoxic encephalopathy Status: Acute (6) Shock liver sec to decrease perfusion Status: Acute LFTS elevated (7) Acute renal failure likely ATN Status: Acute IVF hydration pressors Nephrology consulted Discharge Exam - Head Exam Additional comments: Pt Discharge Plan - Follow Up Plan Condition: Disposition: WITH WITHOUT AUTOPSY
--- NOTE | 2017-01-17 12:23 | RAD ---
HISTORY: ETT placement COMPARISON: 01/16/2017 FINDINGS: LUNGS: No active pulmonary disease. PLEURA: Slight blunting of left costophrenic angle may reflect small pleural effusion. No evidence of right pleural effusion. No pneumothorax. CARDIOVASCULAR: Normal heart size. Nasogastric tube unchanged. Endotracheal tube has been removed. OSSEOUS STRUCTURES: No significant abnormalities. VISUALIZED UPPER ABDOMEN: Normal. OTHER FINDINGS: None. IMPRESSION: Removal of endotracheal tube. Possible small left pleural effusion. No infiltrate.
--- NOTE | 2017-01-17 15:10 | CARD ---
APPROVED REPORT EKG Measurement Heart [id number] <Conclusion> Accelerated Junctional rhythm with frequent premature ventricular complexes ST & T wave abnormality, consider inferior ischemia Prolonged QT Abnormal ECG
--- NOTE | 2017-01-20 13:11 | CARD ---
APPROVED REPORT EKG Measurement Heart [id number] <Conclusion> Multiform P waves (Multifocal atrial rhythm) with premature ventricular Inferior infarct, age undetermined Marked ST abnormality, possible lateral subendocardial injury Abnormal ECG
--- NOTE | 2017-01-20 13:11 | CARD ---
APPROVED REPORT EKG Measurement Heart [id number] <Conclusion> Wide QRS tachycardia (LBBB type) Left axis deviation Abnormal ECG
--- NOTE | 2017-01-20 13:12 | CARD ---
APPROVED REPORT EKG Measurement Heart [id number] <Conclusion> Wide QRS tachycardia Nonspecific intraventricular block (??VT) Abnormal ECG
== END 2017-01-17 11:10 | DRG 208 ==
LOC: H.ER 15:49 → H.ERHOLD 17:50 → H.ICU/CCU 20:00
PROVIDERS: ADMIT Student in an Organized Health Care Education/Training Program; ATTEND Student in an Organized Health Care Education/Training Program
PROC: 5A1945Z Respiratory Ventilation, 24-96 Consecutive Hours (ICD-10-PCS; principal; 2017-01-15)
PROC: 5A12012 Performance of Cardiac Output, Single, Manual (ICD-10-PCS; 2017-01-15)
PROC: 0BH17EZ Insertion of Endotracheal Airway into Trachea, Via Natural or Artificial Opening (ICD-10-PCS; 2017-01-15)
PROC: 0D9670Z Drainage of Stomach with Drainage Device, Via Natural or Artificial Opening (ICD-10-PCS; 2017-01-15)
PROC: 0T9B70Z Drainage of Bladder with Drainage Device, Via Natural or Artificial Opening (ICD-10-PCS; 2017-01-15)
PROC: 04HK33Z Insertion of Infusion Device into Right Femoral Artery, Percutaneous Approach (ICD-10-PCS; 2017-01-16)
DX: J96.91 Respiratory failure, unspecified with hypoxia (principal); I21.4 Non-ST elevation (NSTEMI) myocardial infarction; K72.00 Acute and subacute hepatic failure without coma; N17.0 Acute kidney failure with tubular necrosis; G93.6 Cerebral edema; G93.1 Anoxic brain damage, not elsewhere classified; K92.2 Gastrointestinal hemorrhage, unspecified; E87.2 Acidosis; I48.0 Paroxysmal atrial fibrillation; I49.01 Ventricular fibrillation; R68.0 Hypothermia, not associated with low environmental temperature; I12.9 Hypertensive chronic kidney disease with stage 1 through stage 4 chronic kidney disease, or unspecified chronic kidney disease; N18.9 Chronic kidney disease, unspecified